=== PATIENT | female | born 1960 ===

== ENCOUNTER 2023-09-15 09:44 | Outpatient (AMB) | payer OTHER, SELFPAY ==
[2023-09-15 09:50] VITALS: BP 144/76; PULSE 77; RESP 14; TEMP 36.5; O2SAT 95; BMI 42.3
--- NOTE | 2023-09-15 09:50 | MHC.OFFWIV ---
Intake Vital Signs 09/15/23 09:50 Height 5 ft 1.6 in Weight 228 lb 6 oz BMI 42.3 BP 144/76 H Blood Pressure Location Rt brachial Position Sitting Respiration 14 Pulse 77 Pulse Source Pulse Oximeter Temp 97.7 F Temp Source Temporal Artery Scan Pulse Oximetry (%) 95 Oxygen Delivery Method Room Air Intake Visit Reasons: Diabetes Patient Tobacco Use Status: Never used Tobacco Securities Supervisor Required: Yes Securities Supervisor Name: daughter Accompanied by: Daughter Allergies Seasonal Allergies Allergy (Intermediate, Verified 09/15/23 10:01) Itchy Eyes Penicillins Adverse Reaction (Severe, Verified 09/15/23 10:02) Rash Medication List - Last Reconciled 09/15/23 by Cara Deshpande, MARINE EQUIPMENT ENGINEER- bisoprolol fumarate 5 mg PO BID levocetirizine (Allergy Relief (levocetirizine)) 5 mg PO DAILY sitagliptin phos-metformin 50-1,000 mg (Janumet) 1 tab PO BID telmisartan-amlodipine 80-5 mg 1 tab PO DAILY Do you need a note to return to daycare/school/sports/work: No HPI HPI Comments History of Present Illness Details 63-year-old female with diabetes type 2 with long-term insulin dependence, coronary artery disease here today with her daughter for medication refills Daughter states that she has just relocated to live here from [place]. She has been without her medications for at least a month. She brings me pictures of medications from [place] that she was taking previously. Hemoglobin A1c performed today 9.7% Lots of time was spent finding out what the [place] equivalent of the medications were. All medications were able to be input. No dose changes were made at today's visit. She we will need to establish care with a primary care provider for ongoing maintenance of her chronic care conditions. Wishes to establish care with a PCP sooner and with Dr. Dougherty. A message has been sent to her team to see if this is something that can be coordinated. If not she does have an established care appointment here in November and we will be happy to work with her. Until this time recommend that she continue her medications as directed and returned to the office sooner should she have any needs. PFSH Social History Patient Tobacco Use Status: Never used Tobacco Review of Systems Const All systems reviewed & are unremarkable except as noted in HPI and below Physical Exam Vital Signs: Last Vital Signs Temp 97.7 F 09/15/23 09:50 Pulse 77 09/15/23 09:50 Resp 14 09/15/23 09:50 BP 144/76 H 09/15/23 09:50 Pulse Ox 95 09/15/23 09:50 Oxygen Delivery Method Room Air 09/15/23 09:50 BMI result Body Mass Index 42.3 Const Other: Awake alert oriented Ambulates with a cane Results AMB Hemoglobin A1c AMB Hemoglobin A1c 9.7 % Last Edit by DIANA Donovan on 09/15/23 10:26 Results Reviewed Results Reviewed: Laboratory Last Values Hgb A1c (Clinic) 9.7 % (4.0-6.0) H 09/15/23 10:25 Assessment & Plan Assessment & Plan (1) Diabetes mellitus type 2, insulin dependent: Code(s): E11.9 - Type 2 diabetes mellitus without complications; Z79.4 - intermodal customer service (current) use of insulin (2) CAD (coronary artery disease): Code(s): I25.10 - Atherosclerotic heart disease of platinum coronary artery without angina pectoris Plan: . Plan . This note is constructed using voice recognition software. While every effort has been made to ensure accuracy in linux system admin, still errors may have been included Sometimes, these errors may affect the content or meaning of the given sentence . Total time spent caring for the patient today was 45 minutes. This includes time spent before the visit reviewing the chart, time spent during the visit, and time spent after the visit on documentation Orders: Orders AMB Hemoglobin A1c Today Z13.9 - Encounter for screening, unspecified Medications: New insulin lispro (Humalog KwikPen (U-100) Insulin) SEE BELOW subcutaneously 3 times a day; 20UNITS IN THE AM, 20 UNITS IN THE PM AND 15 UNITS AT HS 15 mL 0RF E11.9 - Type 2 diabetes mellitus without complications, Z79.4 - intermodal customer service (current) use of insulin insulin NPH isoph U-100 human (Humulin N NPH U-100 Insulin KwikPen) TAKE 20 UNITS IN THE AM, 10 UNITS IN THE PM, AND 15 UNITS AT BEDTIME 15 mL 0RF E11.9 - Type 2 diabetes mellitus without complications, Z79.4 - [facility] (current) use of insulin pen needle, diabetic (Easy Comfort Pen [place]) As directed 6 X/DAY 1,200 ea 0RF E11.9 - Type 2 diabetes mellitus without complications, Z79.4 - intermodal customer service (current) use of insulin bisoprolol fumarate 5 mg PO BID 60 tabs 0RF rosuvastatin 20 mg PO DAILY 30 tabs 0RF antiarthritic combination no.2 (glucosamine-chondroitin) 900 mg PO DAILY 30 tabs 0RF montelukast (Singulair) 10 mg PO BEDTIME 30 tabs 0RF sitagliptin phos-metformin 50-1,000 mg (Janumet) 2 tabs PO ONCE 60 tabs 0RF telmisartan-amlodipine 80-5 mg 1 tab PO DAILY 30 tabs 0RF Patient Instructions: Continue to take all medications as directed. If Dr. Gonzalez is available to see you sooner the office will contact you. Otherwise follow up here for primary care as scheduled. Sooner as needed. Coding Level of Care Code Est Pt Level 5 (38245) Diagnoses Diabetes mellitus type 2, insulin dependent E11.9; Z79.4 CAD (coronary artery disease) I25.10
== END 2023-09-15 10:46 | disposition home or self-care (01) ==
PROVIDERS: Visit Provider Nurse Practitioner Family
DX: E11.9 Type 2 diabetes mellitus without complications (principal); Z79.4 Long term (current) use of insulin; I25.10 Atherosclerotic heart disease of native coronary artery without angina pectoris
CPT/HCPCS: 83036; 99215

== ENCOUNTER 2023-11-30 14:03 | Outpatient (AMB) | payer OTHER, SELFPAY ==
[2023-11-30 14:15] VITALS: BP 134/72; PULSE 65; O2SAT 96; BMI 38.0
--- NOTE | 2023-11-30 14:15 | MHC.PC.OV ---
Vital Signs 11/30/23 14:15 Height 5 ft 1.6 in Weight 205 lb 4 oz BMI 38.0 BP 134/72 Blood Pressure Location Rt brachial Position Sitting Pulse 65 Pulse Source Pulse Oximeter Pulse Oximetry (%) 96 Oxygen Delivery Method Room Air Intake Visit Reasons: [employer]ICE EST Care Allergies Seasonal Allergies Allergy (Intermediate, Verified 11/30/23 14:15) Itchy Eyes Penicillins Adverse Reaction (Severe, Verified 11/30/23 14:15) Rash Medication List - Last Reconciled 11/30/23 by Maximilian Gonzalez MD antiarthritic combination no.2 (glucosamine-chondroitin) 900 mg PO DAILY baclofen 10 mg PO DAILY bisoprolol fumarate 5 mg PO BID insulin lispro (Humalog KwikPen (U-100) Insulin) SEE BELOW subcutaneously 3 times a day; 20UNITS IN THE AM, 20 UNITS IN THE PM AND 15 UNITS AT HS insulin NPH isoph U-100 human (Humulin N NPH U-100 Insulin KwikPen) TAKE 20 UNITS IN THE AM, 10 UNITS IN THE PM, AND 15 UNITS AT BEDTIME Janumet 50-1,000 mg (sitagliptin phos-metformin) 2 tabs PO DAILY NS montelukast (Singulair) 10 mg PO BEDTIME omeprazole 20 mg PO DAILY pen needle, diabetic (Easy Comfort Pen [place]) As directed 6 X/DAY rosuvastatin 20 mg PO DAILY telmisartan-amlodipine 80-5 mg 1 tab PO DAILY Tobacco use date assessed: 11/30/23 Dental Screening Dental Screen Date: 11/30/23 Did you have a dental visit in the last 12 months?: Yes Did you have a dental problem in the last 6 months where you did not have access to dental care?: No Was dental information given to patient?: Patient has dentist HPI [employer]ICE EST Care HPI Details Patient is 63-year-old female from [place] who moved to [facility] July of this year And is living with her daughter Patient has gone through [place] war, and is now having PTSD Which is causing nightmares at night and difficulty sleeping She is chronically severely depressed Patient is requesting therapy, she will meet with Rashida so we can set that up Meanwhile I am starting her on Lexapro 10 mg daily Patient has a history of coronary artery disease and need to see Cardiology She is complaining of generalized abdominal pain and nausea Pain is located all over her abdomen and has no relationship with eating She is due for colonoscopy as well Gastroenterology referral placed, meanwhile patient will be started on omeprazole daily She has uncontrolled diabetes, hemoglobin A1c in August was 9.7 Currently patient is on insulin, endocrinology referral is placed She has already seen ophthalmology and was sent to another specialist for eye care Daughter has appointment for that She is also suffering from chronic pruritic rash all over her body More so at night, hydroxyzine 25 mg sent for that Lab order placed to be done fasting Daughter is also looking for housing and has filed application She is requesting help for the patient which we will address once I have more information Chronic constipation, last bowel movement was more than a week ago I have sent Senokot S tablet patient is to start taking 2 tablets every night She need to return in 3 weeks for follow-up appointment [facility] Social History Housing: House Patient Tobacco Use Status: Never used Tobacco e-Cigarette/Vaping Use: Never Used service: No Current occupational status: unemployed Current occupational exposures/hazards: No Cognitive needs: No Hearing needs: No Vision needs: Yes Questionnaire PHQ-9 Over the last 2 weeks, how often have you been bothered by any of the following problems? 1. Little interest or pleasure in doing things: several days 2. Feeling down, depressed, or hopeless: several days 3. Trouble falling or staying asleep, or sleeping too much: several days 4. Feeling tired or having little energy: several days 5. Poor appetite or overeating: several days 6. Feeling bad about yourself - or that you are a failure or have let yourself or your family down: several days 7. Trouble concentrating on things, such as reading the newspaper or watching television: several days 8. Moving or speaking so slowly that other people could have noticed. Or the opposite - being so fidgety or restless that you have been moving around a lot more than usual: several days 9. Thoughts that you would be better off or of hurting yourself in some way: several days Total score: 9 Depression Screening Interpretation: Negative Depression Screening Done: Yes 80235 - PHQ-9 Billing: Yes Source: Developed by Drs. Pratik Tolbert, Sue Valiente, Ozzie Mckenzie and colleagues, with an educational kahlil from [employer]. Thrive Questionnaire Date Thrive assessed: 11/30/23 I am a: Patient What is your living situation today?: I do not have a steady places to live I am temporarily staying with others Within the past 12 months, did the food you bought not last and you didn't have the money to get more?: Often true Within the past 12 months, did you worry whether your food would run out before you got money to buy more?: Often true Do you have trouble paying for medicines?: Yes Do you have trouble getting transportation to medical appointments?: Yes Do you have trouble paying your heating and electricity bill?: Yes Do you have trouble taking care of your child, family member or friend?: Yes Do you have trouble with day-to-day activities such as bathing, preparing meals, shopping, managing finances, etc.?: Yes Are you currently unemployed and looking for a job?: I choose not to answer this question Are you interested in more education?: No Please select the resources that you would like help with: Housing/Fpc, Food, Paying for medicine, Transportation, Care for elder or disabled and Daily support Currently or been in a relationship where the following occur: I choose not to answer THRIVE Score: 5 AUDIT C Alcohol Use Questionnaire (AUDIT-C) 1. How often do you have a drink containing alcohol?: Never 3. How often do you have six or more drinks on one occasion?: Never Total Score: 0 Score Reviewed/Action Taken: Yes SUMAYA-7 AMB Questionnaire SUMAYA-7 Date SUMAYA - 7 assessed: 11/30/23 Feeling nervous, anxious, or on edge: 3 = Nearly every day Not being able to stop or control worryin = Nearly every day Worrying too much about different things: 3 = Nearly every day Trouble relaxin = Nearly every day Being so restless that it is hard to sit still: 3 = Nearly every day Becoming easily annoyed or irritable: 3 = Nearly every day Feeling afraid as if something awful might happen: 3 = Nearly every day Total SUMAYA-7 score (0-4 normal; 5-9 mild; 10-14 moderate; 15-21 severe): 21 Source: Developed by Drs. Pratik Tolbert, Sue Valiente, Ozzie Mckenzie and colleagues, with an educational kahlil from [employer]. SUMAYA-7 Assessment Billing SUMAYA-7 Assessment Tool: SUMAYA-7 Assessment 53916 Review of Systems Const Denies chills, Denies fever(s) and Denies headache(s) ENT Denies headache(s), Denies nasal discharge, Denies nasal obstruction, Denies odynophagia and Denies sinus pain Card Denies chest pain at rest and Denies chest pain with activity Resp Denies cough and Denies hemoptysis GI Denies diarrhea, Denies odynophagia, Denies vomiting and Denies hematemesis Reports as per HPI Musc Denies abnormal gait Skin/Breast Reports as per HPI Neuro Denies Neuro-related abnormal movements, Denies abnormal gait and Denies headache(s) Psych Denies mood swings and Denies paranoia Endo Reports as per HPI Lan/Lymph Reports as per HPI Aller/Immun Reports as per HPI Physical exam (Primary Care) Vital Signs: Last Vital Signs Pulse 65 11/30/23 14:15 BP 134/72 11/30/23 14:15 Pulse Ox 96 11/30/23 14:15 Oxygen Delivery Method Room Air 11/30/23 14:15 BMI result Body Mass Index 38.0 Tobacco/Smoking Status: Tobacco use Status Tobacco use date assessed 11/30/23 11/30/23 14:27 Patient Tobacco Use Status Never used Tobacco 11/30/23 14:20 e-Cigarette/Vaping Use Never Used 11/30/23 14:27 PHQ-9: PHQ-9 Score PHQ-9: Total score 9 11/30/23 15:13 Depression Screening Interpretation: Negative Thrive Assessment: Date of Thrive Assessment Date Thrive assessed 11/30/23 11/30/23 14:27 Currently or been in a relationship where the following occur: I choose not to answer Const General: cooperative, comfortable and no acute distress Orientation/consciousness: patient oriented x3 HENMT Head: Yes normocephalic and Yes atraumatic Eyes General: appearance normal, both eyes and all related structures Pupils: Equal, round and reactive pupils present EOM: EOMs intact bilaterally Neck Neck: Yes supple and No lymphadenopathy Thyroid: Thyroid normal Lymphatic: no lymphadenopathy noted Resp Effort & Inspection: normal respiratory effort and able to speak in complete sentences Auscultation: clear to auscultation bilaterally Cardio Heart sounds: S1 normal heart sound present and S2 normal heart sound present GI Other: Generalized abdominal pain, bowel sounds positive soft General: Yes no CVA tenderness Back/Spine/Pelvis Back: no CVA tenderness Skin General skin exam: elasticity normal and turgor normal Neuro General: patient oriented x3 and gait normal Cranial nerves: Yes Equal, round and reactive pupils present Extrem General: Yes normal exam except as noted and No edema Psych Affect: Sad affect present and Blunted affect present Assessment and Plan Assessment & Plan (1) Establishing care with new doctor, encounter for: Code(s): Z76.89 - Persons encountering health services in other specified circumstances (2) Uncontrolled diabetes mellitus: Qualifiers: Diabetes mellitus type: type 1 Glycemic state: with hyperglycemia Qualified Code(s): E10.65 - Type 1 diabetes mellitus with hyperglycemia (3) Hyperglycemia due to diabetes mellitus: Code(s): E11.65 - Type 2 diabetes mellitus with hyperglycemia (4) CAD (coronary artery disease): Code(s): I25.10 - Atherosclerotic heart disease of [place] coronary artery without angina pectoris Qualifiers: Associated angina: without angina Coronary Disease-Associated Artery/Lesion type: [place] artery [place] vs. transplanted heart: [place] heart Qualified Code(s): I25.10 - Atherosclerotic heart disease of [place] coronary artery without angina pectoris (5) Generalized abdominal pain: Code(s): R10.84 - Generalized abdominal pain (6) Depression, major, severe recurrence: Code(s): F33.2 - Major depressive disorder, recurrent severe without psychotic features Qualifiers: Psychotic features: without psychotic features Qualified Code(s): F33.2 - Major depressive disorder, recurrent severe without psychotic features (7) PTSD (post-traumatic stress disorder): Code(s): F43.10 - Post-traumatic stress disorder, unspecified (8) Obesity due to excess calories: Code(s): E66.09 - Other obesity due to excess calories Qualifiers: Body mass index: BMI 38.0-38.9 Obesity classification: adult class 2 (BMI 35 - 39.9) Serious obesity comorbidity presence: with serious comorbidity Qualified Code(s): E66.01 - Morbid (severe) obesity due to excess calories; Z68.38 - Body mass index [BMI] 38.0-38.9, adult (9) Nausea: Code(s): R11.0 - Nausea (10) Blurring of vision: Code(s): H53.8 - Other visual disturbances (11) Chronic pruritus: Code(s): L29.9 - Pruritus, unspecified (12) Nightmares: Code(s): F51.5 - Nightmare disorder (13) Difficulty sleeping: Code(s): G47.9 - Sleep disorder, unspecified (14) Colon cancer screening: Code(s): Z12.11 - Encounter for screening for malignant neoplasm of colon Plan Patient is 63-year-old female from [place] who moved to [facility] July of this year And is living with her daughter Patient has gone through [place] war, and is now having PTSD Which is causing nightmares at night and difficulty sleeping She is chronically severely depressed Patient is requesting therapy, she will meet with Rashida so we can set that up Meanwhile I am starting her on Lexapro 10 mg daily Patient has a history of coronary artery disease and need to see Cardiology She is complaining of generalized abdominal pain and nausea Pain is located all over her abdomen and has no relationship with eating She is due for colonoscopy as well Gastroenterology referral placed, meanwhile patient will be started on omeprazole daily She has uncontrolled diabetes, hemoglobin A1c in August was 9.7 Currently patient is on insulin, endocrinology referral is placed She has already seen ophthalmology and was sent to another specialist for eye care Daughter has appointment for that She is also suffering from chronic pruritic rash all over her body More so at night, hydroxyzine 25 mg sent for that Lab order placed to be done fasting Daughter is also looking for housing and has filed application She is requesting help for the patient which we will address once I have more information Chronic constipation, last bowel movement was more than a week ago I have sent Senokot S tablet patient is to start taking 2 tablets every night She need to return in 3 weeks for follow-up appointment 60 minutes spent in care of this patient Orders: Orders Comprehensive [place]. Panel Fast Today E11.65 - Type 2 diabetes mellitus with hyperglycemia, E66.09 - Other obesity due to excess calories, F33.2 - Major depressive disorder, recurrent severe without psychotic features, F43.10 - Post-traumatic stress disorder, unspecified, F51.5 - Nightmare disorder, G47.9 - Sleep disorder, unspecified, H53.8 - Other visual disturbances, I25.10 - Atherosclerotic heart disease of [place] coronary artery without angina pectoris, L29.9 - Pruritus, unspecified, R10.84 - Generalized abdominal pain, R11.0 - Nausea, Z76.89 - Persons encountering health services in other specified circumstances Lipid Panel Today E11.65 - Type 2 diabetes mellitus with hyperglycemia, E66.09 - Other obesity due to excess calories, F33.2 - Major depressive disorder, recurrent severe without psychotic features, F43.10 - Post-traumatic stress disorder, unspecified, F51.5 - Nightmare disorder, G47.9 - Sleep disorder, unspecified, H53.8 - Other visual disturbances, I25.10 - Atherosclerotic heart disease of [place] coronary artery without angina pectoris, L29.9 - Pruritus, unspecified, R10.84 - Generalized abdominal pain, R11.0 - Nausea, Z76.89 - Persons encountering health services in other specified circumstances TSH reflex Free T4 Today E11.65 - Type 2 diabetes mellitus with hyperglycemia, E66.09 - Other obesity due to excess calories, F33.2 - Major depressive disorder, recurrent severe without psychotic features, F43.10 - Post-traumatic stress disorder, unspecified, F51.5 - Nightmare disorder, G47.9 - Sleep disorder, unspecified, H53.8 - Other visual disturbances, I25.10 - Atherosclerotic heart disease of [place] coronary artery without angina pectoris, L29.9 - Pruritus, unspecified, R10.84 - Generalized abdominal pain, R11.0 - Nausea, Z76.89 - Persons encountering health services in other specified circumstances Vitamin B12 Today E11.65 - Type 2 diabetes mellitus with hyperglycemia, E66.09 - Other obesity due to excess calories, F33.2 - Major depressive disorder, recurrent severe without psychotic features, F43.10 - Post-traumatic stress disorder, unspecified, F51.5 - Nightmare disorder, G47.9 - Sleep disorder, unspecified, H53.8 - Other visual disturbances, I25.10 - Atherosclerotic heart disease of [place] coronary artery without angina pectoris, L29.9 - Pruritus, unspecified, R10.84 - Generalized abdominal pain, R11.0 - Nausea, Z76.89 - Persons encountering health services in other specified circumstances Vitamin D 25-OH (D2 and D3) Today E11.65 - Type 2 diabetes mellitus with hyperglycemia, E66.09 - Other obesity due to excess calories, F33.2 - Major depressive disorder, recurrent severe without psychotic features, F43.10 - Post-traumatic stress disorder, unspecified, F51.5 - Nightmare disorder, G47.9 - Sleep disorder, unspecified, H53.8 - Other visual disturbances, I25.10 - Atherosclerotic heart disease of [place] coronary artery without angina pectoris, L29.9 - Pruritus, unspecified, R10.84 - Generalized abdominal pain, R11.0 - Nausea, Z76.89 - Persons encountering health services in other specified circumstances MM tomosynthesis screening BI Today Z12.31 - Encounter for screening mammogram for malignant neoplasm of breast Complete Blood Count Auto Diff Today E11.65 - Type 2 diabetes mellitus with hyperglycemia, E66.09 - Other obesity due to excess calories, F33.2 - Major depressive disorder, recurrent severe without psychotic features, F43.10 - Post-traumatic stress disorder, unspecified, F51.5 - Nightmare disorder, G47.9 - Sleep disorder, unspecified, H53.8 - Other visual disturbances, I25.10 - Atherosclerotic heart disease of [place] coronary artery without angina pectoris, L29.9 - Pruritus, unspecified, R10.84 - Generalized abdominal pain, R11.0 - Nausea, Z76.89 - Persons encountering health services in other specified circumstances Microalbumin, Random (w Creat) Today E11.65 - Type 2 diabetes mellitus with hyperglycemia, E66.09 - Other obesity due to excess calories, F33.2 - Major depressive disorder, recurrent severe without psychotic features, F43.10 - Post-traumatic stress disorder, unspecified, F51.5 - Nightmare disorder, G47.9 - Sleep disorder, unspecified, H53.8 - Other visual disturbances, I25.10 - Atherosclerotic heart disease of [place] coronary artery without angina pectoris, L29.9 - Pruritus, unspecified, R10.84 - Generalized abdominal pain, R11.0 - Nausea, Z76.89 - Persons encountering health services in other specified circumstances Referrals Cardiology Referral I25.10 - Atherosclerotic heart disease of [place] coronary artery without angina pectoris [employer]NAG[employer]ER Referral Z01.419 - Encounter for gynecological examination (general) (routine) without abnormal findings Endocrinology Referral E11.65 - Type 2 diabetes mellitus with hyperglycemia Gastroenterology Referral R10.84 - Generalized abdominal pain, Z12.11 - Encounter for screening for malignant neoplasm of colon Medications: New omeprazole 20 mg PO .q pm 30 caps 0RF Stomach pain sennosides-docusate sodium 8.6-50 mg (Senokot-S) 2 tab-caps (2 x 8.6-50 mg) PO BEDTIME 180 tabs 0RF constipation 90 days hydroxyzine HCl 25 mg PO BEDTIME 30 tabs 0RF Itching escitalopram oxalate (Lexapro) 10 mg PO .q am 30 tabs 0RF Depression Coding Level of Care Code New Pt Level 5 (40872) Diagnoses Establishing care with new doctor, encounter for Z76.89 Uncontrolled type 1 diabetes mellitus with hyperglycemia E10.65 Diabetes mellitus type: type 1 Glycemic state: with hyperglycemia Hyperglycemia due to diabetes mellitus E11.65 Coronary artery disease involving [place] coronary artery of [place] heart without angina pectoris I25.10 Associated angina: without angina Coronary Disease-Associated Artery/Lesion type: [place] artery [place] vs. transplanted heart: [place] heart Generalized abdominal pain R10.84 Severe episode of recurrent major depressive disorder, without psychotic features F33.2 Psychotic features: without psychotic features PTSD (post-traumatic stress disorder) F43.10 Class 2 severe obesity due to excess calories with serious comorbidity and body mass index (BMI) of 38.0 to 38.9 in adult E66.01; Z68.38 Body mass index: BMI 38.0-38.9 Obesity classification: adult class 2 (BMI 35 - 39.9) Serious obesity comorbidity presence: with serious comorbidity Nausea R11.0 Blurring of vision H53.8 Chronic pruritus L29.9 Nightmares F51.5 Difficulty sleeping G47.9 Colon cancer screening Z12.11 Additional Codes SUMAYA-7 Assessment Billing - SUMAYA-7 Assessment Tool: SUMAYA-7 Assessment 26331 ([id number])
== END 2023-11-30 15:04 | disposition home or self-care (01) ==
PROVIDERS: Visit Provider Internal Medicine
DX: E11.65 Type 2 diabetes mellitus with hyperglycemia (principal); F33.2 Major depressive disorder, recurrent severe without psychotic features; E66.01 Morbid (severe) obesity due to excess calories; Z68.38 Body mass index [BMI] 38.0-38.9, adult; Z76.89 Persons encountering health services in other specified circumstances; I25.10 Atherosclerotic heart disease of native coronary artery without angina pectoris; R10.84 Generalized abdominal pain; F43.10 Post-traumatic stress disorder, unspecified; R11.0 Nausea; H53.8 Other visual disturbances; L29.9 Pruritus, unspecified; F51.5 Nightmare disorder; G47.9 Sleep disorder, unspecified; Z12.11 Encounter for screening for malignant neoplasm of colon
CPT/HCPCS: 99215; 99417

== ENCOUNTER 2023-12-01 08:50 | Outpatient (REF) | payer OTHER, SELFPAY ==
[2023-12-01 09:57] LABS: MANUAL DIFF FLAG NO
[2023-12-01 10:14] LABS: Basophils Absolute Auto 0.1 X10*3/uL (0.0-0.2); Basophils Percent Auto 0.9 % (0-2); Eosinophils Percent Auto 12.8 % (0-4); Hematocrit 38.8 % (37.0-47.0); Hemoglobin 12.5 g/dl (12.0-16.0); Imm Gran Abs Auto 0.02 X10*3/uL (0.00-0.03); Imm Gran Pct Auto 0.3 % (0.0-0.4); Lymphocytes Absolute Auto 2.9 X10*3/uL (1.2-4.9); Mean Corpuscular HGB Conc 32.2 g/dl (31.0-35.0); Mean Corpuscular Hemoglobin 27.8 pg (27.0-33.0); Mean Corpuscular Volume 86.4 fL (80.0-98.0); Mean Platelet Volume 10.2 fL (9.4-12.3); Monocytes Absolute Auto 0.5 X10*3/uL (0.1-1.2); Monocytes Percent Auto 6.7 % (2-11); Neutrophils Absolute Auto 3.2 x10*3/uL (2.0-8.3); Neutrophils Percent Auto 41.3 % (45-73); Platelet Count 152 X10*3/uL (160-400); Red Blood Count 4.49 X10*6/uL (4.20-5.50); Red Cell Distribution Width 13.2 % (11.0-16.0); White Blood Count 7.7 X10*3/uL (4.8-10.8)
[2023-12-01 10:36] LABS: Creatinine Urine 38.15 mg/dL; Microalbum/Creatinine Ratio Ur 581.9 ug/mg cr (<30)
[2023-12-01 10:46] LABS: Alanine Aminotransferase 20 U/L (0-31); Alkaline Phosphatase 97 U/L (39-117); Anion Gap 13 (12-20); Aspartate Amino Transferase 15 U/L (5-31); Bilirubin Total 0.7 mg/dL (0.0-1.0); Blood Urea Nitrogen 22 mg/dL (9-16); Calcium 9.6 mg/dL (8.4-10.2); Carbon Dioxide 25 mmol/L (22-29); Chloride 109 mmol/L (96-108); Cholesterol 140 mg/dL (<200); Estimated Glomerular Filt Rate > 60; Glucose Fasting 215 mg/dL (60-99); HDL Cholesterol 33 mg/dL (>40); LDL Cholesterol Calculated 74 mg/dL (<100); Potassium 4.7 mmol/L (3.3-5.1); Sodium 142 mmol/L (135-145); TSH reflex Free T4 0.74 uIU/mL (0.32-4.0); Total Protein 7.2 g/dL (6.5-8.0); Triglycerides 165 mg/dL (<150)
[2023-12-01 11:19] LABS: Vitamin B12 495 pg/mL (200-900)
[2023-12-05 15:53] LABS: Vitamin D 25-OH, D2 14 ng/mL; Vitamin D 25-OH, D3 15 ng/mL; Vitamin D 25-OH, Total 29 ng/mL (30-100)
== END 2023-12-01 08:51 | disposition home or self-care (01) ==
LOC: HO.HMGCLDS 08:50
PROVIDERS: PCP Internal Medicine; Visit Provider Internal Medicine
DX: E11.65 Type 2 diabetes mellitus with hyperglycemia (principal); Z76.89 Persons encountering health services in other specified circumstances; I25.10 Atherosclerotic heart disease of native coronary artery without angina pectoris; R10.84 Generalized abdominal pain; F33.2 Major depressive disorder, recurrent severe without psychotic features; F43.10 Post-traumatic stress disorder, unspecified; E66.09 Other obesity due to excess calories; R11.0 Nausea; H53.8 Other visual disturbances; L29.9 Pruritus, unspecified; F51.5 Nightmare disorder; G47.9 Sleep disorder, unspecified
CPT/HCPCS: 36415; 80053; 80061; 82043; 82306; 82570; 82607; 84443; 85025

== ENCOUNTER 2023-12-02 14:47 | Outpatient (AMB) | payer OTHER, SELFPAY ==
--- NOTE | 2023-12-02 14:51 | MHC.OFFVIS ---
Vital Signs 12/02/23 14:55 Height 5 ft 1.6 in Weight 213 lb 13.574 oz BMI 39.6 BP 120/78 Blood Pressure Location Rt brachial Position Sitting Pulse 66 Pulse Source Pulse Oximeter Intake Visit Reasons: Type 2 DM-confirmed Intake Note: NEW Patient presents today to establish treatment for Type 2 Diabetes Mellitus: Last Diabetic eye exam was on: DUE Last Podiatry exam was on: Does not see a Ventilator Specialist Most recent HbA1c: 9.7%, 09/15/2023 Random Glucose- 197mg/dL, Today Hotel Or Motel Cleaning Supervisor Required: Yes Hotel Or Motel Cleaning Supervisor Services: Hotel Or Motel Cleaning Supervisor Offered & Declined (Patient signed the refusal to accept interpretative services (Daughter)) Accompanied by: Daughter Allergies Seasonal Allergies Allergy (Intermediate, Verified 12/02/23 14:57) Itchy Eyes Penicillins Adverse Reaction (Severe, Verified 12/02/23 14:57) Rash HPI Comments Details: 63-year-old female with diabetes type 2 with long-term insulin dependence presenting for diabetic consultation Medical history: CAD, depression, htn, OA Hemoglobin A1c performed in August 9.7%.Recently moved from [place]. Elects daughter to interpret Current medications: NPH 15/01/15 and lispro , janumet. Reports majority of blood glucose in 200s. No hypoglycemia. No readings >350 Needs eye doctor, podiatry On ARB, statin ROS CONSTITUTIONAL: Denies weight loss, fever and chills. HEENT: Denies changes in vision and hearing. RESPIRATORY: Denies SOB and cough. CV: Denies palpitations and CP GI: Denies abdominal pain, nausea, vomiting and diarrhea. : Denies dysuria and urinary frequency. MSK: Denies new myalgia and joint pain. SKIN: Denies rash and pruritus. NEUROLOGICAL: Denies headache PSYCHIATRIC: Denies recent changes in mood. PHYSICAL EXAM: GENERAL: Alert and oriented x 3. NAD EYES: EOMI. Anicteric. HENT: Moist mucous membranes. No scleral icterus. No cervical lymphadenopathy. LUNGS: Clear to auscultation bilaterally. CARDIOVASCULAR: Regular rate and rhythm. No murmur. No JVD. ABDOMEN: Soft, non-tender +bs EXTREMITIES: No edema. Non-tender. SKIN: No rashes or lesions. Warm. NEUROLOGIC: No focal neurological deficits. CN II-XII grossly intact PSYCHIATRIC: Cooperative. Appropriate mood and affect [facility] Social History Housing: House Patient Tobacco Use Status: Never used Tobacco e-Cigarette/Vaping Use: Never Used service: No Current occupational status: unemployed Current occupational exposures/hazards: No Cognitive needs: No Hearing needs: No Vision needs: Yes Physical Exam Vital Signs: Last Vital Signs Pulse 66 12/02/23 14:55 BP 120/78 12/02/23 14:55 BMI result Body Mass Index 39.6 Results Reviewed Results Reviewed: Laboratory Last Values Glucose (Clinic) 197 mg/dL (60-115) H 12/02/23 15:01 Assessment & Plan Assessment & Plan (1) Diabetes: Code(s): E11.9 - Type 2 diabetes mellitus without complications Category: Medical Qualifiers: Diabetes mellitus complication status: with hyperglycemia Diabetes mellitus watermelon harvesting supervisor insulin use: with longterm use Diabetes mellitus type: type 2 Qualified Code(s): E11.65 - Type 2 diabetes mellitus with hyperglycemia; Z79.4 - detention (current) use of insulin Plan: Discussed with patient to bring meter/logs to every visit Will transition her to long acting and short acting insulin-will be conservative for transition, start with Lantus 45 untis nightly and continue current short acting insulin dose Stop janumet. Continue metformin-max dose and add mounjaro Freestyle Ramy sent. Short term follow up Referrals placed (2) Insulin long-term use: Code(s): Z79.4 - termite exterminator (current) use of insulin Category: Medical Plan: see above Orders: Referrals Podiatry Referral L08.9 - Local infection of the skin and subcutaneous tissue, unspecified, E11.9 - Type 2 diabetes mellitus without complications, Z79.4 - detention (current) use of insulin Ophthalmology Referral E11.9 - Type 2 diabetes mellitus without complications Medications: New FreeStyle Ramy 3 [place] (blood-glucose meter,continuous) As directed 1 ea 0RF NS E10.65 - Type 1 diabetes mellitus with hyperglycemia insulin glargine (Lantus Solostar U-100 Insulin) 45 units (0.45 mL) subcut QPM 30 mL 3RF Mounjaro (tirzepatide) for 4 weeks 2.5 mg (0.5 mL) subcut QWEEK 2 mL 1RF NS E11.65 - Type 2 diabetes mellitus with hyperglycemia, E11.9 - Type 2 diabetes mellitus without complications, Z79.4 - termite exterminator (current) use of insulin metformin ER 2,000 mg (4 x 500 mg) PO DAILY 360 tabs 3RF 90 days FreeStyle Ramy 3 Sensor (blood-glucose sensor) every 14 days 6 ea 3RF NS E11.9 - Type 2 diabetes mellitus without complications, Z79.4 - termite exterminator (current) use of insulin, E11.65 - Type 2 diabetes mellitus with hyperglycemia Changed From insulin lispro SEE BELOW subcutaneously 3 times a day; 20UNITS IN THE AM, 20 UNITS IN THE PM AND 15 UNITS AT HS 15 mL 0RF E11.9 - Type 2 diabetes mellitus without complications, Z79.4 - termite exterminator (current) use of insulin To Humalog KwikPen Insulin (insulin lispro) 20 units subcutaneous with breakfast 20 units subcutaneous with lunch;15 units with dinner 15 mL 3RF NS E11.9 - Type 2 diabetes mellitus without complications, Z79.4 - termite exterminator (current) use of insulin Discontinued Janumet 50-1,000 mg Discontinued Reason: Doctor's Order 2 tabs PO DAILY 180 tabs 0RF NS insulin NPH isoph U-100 human Discontinued Reason: Doctor's Order TAKE 20 UNITS IN THE AM, 10 UNITS IN THE PM, AND 15 UNITS AT BEDTIME 15 mL 0RF E11.9 - Type 2 diabetes mellitus without complications, Z79.4 - detention (current) use of insulin Coding Level of Care Code Est Pt Level 5 (12252) Diagnoses Type 2 diabetes mellitus with hyperglycemia, with long-term current use of insulin E11.65; Z79.4 Diabetes mellitus complication status: with hyperglycemia Diabetes mellitus watermelon harvesting supervisor insulin use: with longterm use Diabetes mellitus type: type 2 Insulin long-term use Z79.4 Time Spent (min) 50
[2023-12-02 14:55] VITALS: BP 120/78; PULSE 66; BMI 39.6
[2023-12-02 15:05] LABS: Glucose, Whole Blood 197 mg/dL (60-115)
== END 2023-12-02 15:34 | disposition home or self-care (01) ==
PROVIDERS: PCP Internal Medicine; Visit Provider Internal Medicine
DX: E11.65 Type 2 diabetes mellitus with hyperglycemia (principal); Z79.4 Long term (current) use of insulin

== ENCOUNTER → 2023-12-02 14:47 | Outpatient (BNVA) | payer OTHER, SELFPAY | PROVIDERS: PCP Internal Medicine; Visit Provider Internal Medicine | DX: E11.65 Type 2 diabetes mellitus with hyperglycemia (principal); Z79.4 Long term (current) use of insulin | CPT/HCPCS: 82947 ==

== ENCOUNTER 2023-12-21 13:42 | Outpatient (AMB) | payer OTHER, SELFPAY ==
--- NOTE | 2023-12-21 13:48 | A.OFFPC_ITS ---
Vital Signs 12/21/23 13:50 Height 5 ft 1.6 in Weight 214 lb BMI 39.6 BP 136/80 Blood Pressure Location Rt brachial Position Sitting Pulse 74 Pulse Source Pulse Oximeter Pulse Oximetry (%) 98 Oxygen Delivery Method Room Air Intake Visit Reasons: 3 weeks f/up Allergies Seasonal Allergies Allergy (Intermediate, Verified 12/21/23 13:50) Itchy Eyes Penicillins Adverse Reaction (Severe, Verified 12/21/23 13:50) Rash Medication List - Last Reconciled 12/21/23 by Maximilian Gonzalez MD antiarthritic combination no.2 (glucosamine-chondroitin) 900 mg PO DAILY baclofen 10 mg PO DAILY bisoprolol fumarate 5 mg PO BID escitalopram oxalate (Lexapro) 10 mg PO .q am FreeStyle Ramy 3 [place] (blood-glucose meter,continuous) As directed NS FreeStyle Ramy 3 Sensor (blood-glucose sensor) every 14 days NS Humalog KwikPen Insulin (insulin lispro) 20 units subcutaneous with breakfast 20 units subcutaneous with lunch;15 units with dinner NS hydroxyzine HCl 25 mg PO BEDTIME insulin glargine (Lantus Solostar U-100 Insulin) 45 units (0.45 mL) subcut QPM metformin ER 2,000 mg (4 x 500 mg) PO DAILY 90 days montelukast (Singulair) 10 mg PO BEDTIME Mounjaro (tirzepatide) 2.5 mg (0.5 mL) subcut QWEEK NS omeprazole 20 mg PO DAILY omeprazole 20 mg PO .q pm pen needle, diabetic (Easy Comfort Pen Kuna) As directed 6 X/DAY rosuvastatin 20 mg PO DAILY sennosides-docusate sodium 8.6-50 mg (Senokot-S) 2 tab-caps (2 x 8.6-50 mg) PO BEDTIME 90 days telmisartan-amlodipine 80-5 mg 1 tab PO DAILY Tobacco use date assessed: 11/30/23 Dental Screening Dental Screen Date: 11/30/23 HPI 3 weeks f/up HPI Details Patient is 63-year-old female who speaks only her [place] language came in with her daughter was speak [place] This is her 2nd visit Patient have complicated medical history She has coronary artery disease, continued to have chest pain off and on radiating to left arm Daughter has tried to take her to emergency room but patient has been refusing She does have a cardiology appointment 03 of April EKG done today shows no acute findings normal sinus rhythm I have sent nitroglycerin tablets with the patient explain to her that to placed under the tongue if she started having chest pain again And if pain does not resolve she needs to go to emergency room Depression: She was started on Lexapro 10 mg she is feeling better I am increasing the dose to 20 mg Chronic pruritus better with hydroxyzine 25 mg at night Allergies are also better with montelukast 10 mg daily Patient is now going to endocrinology for the management of uncontrolled insulin-dependent diabetes mellitus Omeprazole has helped her with the epigastric discomfort, however she is still waiting for gastroenterology appointment, I have sent message to them She will meet with our behavior health coordinator again so we can help set up therapy appointment for the patient. Constipation is better with Senokot S tablets. Blood pressure is stable continue telmisartan amlodipine daily Medications refills sent Follow-up 3 months [facility] Social History Housing: [place] Patient Tobacco Use Status: Never used Tobacco e-Cigarette/Vaping Use: Never Used service: No Current occupational status: unemployed Current occupational exposures/hazards: No Cognitive needs: No Hearing needs: No Vision needs: Yes Questionnaire PHQ-9 Over the last 2 weeks, how often have you been bothered by any of the following problems? 1. Little interest or pleasure in doing things: several days 2. Feeling down, depressed, or hopeless: several days 3. Trouble falling or staying asleep, or sleeping too much: several days 4. Feeling tired or having little energy: several days 5. Poor appetite or overeating: several days 6. Feeling bad about yourself - or that you are a failure or have let yourself or your family down: several days 7. Trouble concentrating on things, such as reading the newspaper or watching television: several days 8. Moving or speaking so slowly that other people could have noticed. Or the opposite - being so fidgety or restless that you have been moving around a lot more than usual: several days 9. Thoughts that you would be better off or of hurting yourself in some way: several days Total score: 9 Depression Screening Interpretation: Negative Depression Screening Done: Yes 88408 - PHQ-9 Billing: Yes Source: Developed by Drs. Pratik Tolbert, Ozzie Rodas and colleagues, with an educational kahlil from [employer]. Thrive Questionnaire Date Thrive assessed: 11/23/23 I am a: Patient What is your living situation today?: I do not have a steady places to live I am temporarily staying with others Within the past 12 months, did the food you bought not last and you didn't have the money to get more?: Often true Within the past 12 months, did you worry whether your food would run out before you got money to buy more?: Often true Do you have trouble paying for medicines?: Yes Do you have trouble getting transportation to medical appointments?: Yes Do you have trouble paying your heating and electricity bill?: Yes Do you have trouble taking care of your child, family member or friend?: Yes Do you have trouble with day-to-day activities such as bathing, preparing meals, shopping, managing finances, etc.?: Yes Are you currently unemployed and looking for a job?: I choose not to answer this question Are you interested in more education?: No Currently or been in a relationship where the following occur: I choose not to answer THRIVE Score: 5 AUDIT C Alcohol Use Questionnaire (AUDIT-C) 1. How often do you have a drink containing alcohol?: Never 3. How often do you have six or more drinks on one occasion?: Never Total Score: 0 SUMAYA-7 AMB Questionnaire SUMAYA-7 Date SUMAYA - 7 assessed: 11/30/23 Feeling nervous, anxious, or on edge: 3 = Nearly every day Not being able to stop or control worryin = Nearly every day Worrying too much about different things: 3 = Nearly every day Trouble relaxin = Nearly every day Being so restless that it is hard to sit still: 3 = Nearly every day Becoming easily annoyed or irritable: 3 = Nearly every day Feeling afraid as if something awful might happen: 3 = Nearly every day Total SUMAYA-7 score (0-4 normal; 5-9 mild; 10-14 moderate; 15-21 severe): 21 Source: Developed by Drs. Pratik Tolbert, Ozzie Rodas and colleagues, with an educational kahlil from [employer]. Review of Systems Const Denies chills and Denies fever(s) ENT Denies epistaxis and Denies nasal discharge Resp Denies chest congestion, Denies cough and Denies hemoptysis GI Denies diarrhea and Denies nausea Skin/Breast Denies rash Neuro Reports no additional complaints Psych Reports no additional complaints Endo Reports no additional complaints Physical exam (Primary Care) Vital Signs: Last Vital Signs Pulse 74 12/21/23 13:50 BP 136/80 12/21/23 13:50 Pulse Ox 98 12/21/23 13:50 Oxygen Delivery Method Room Air 12/21/23 13:50 BMI result Body Mass Index 39.6 Tobacco/Smoking Status: Tobacco use Status Tobacco use date assessed 11/30/23 12/21/23 13:49 Patient Tobacco Use Status Never used Tobacco 12/21/23 13:49 e-Cigarette/Vaping Use Never Used 12/21/23 13:49 PHQ-9: PHQ-9 Score PHQ-9: Total score 9 12/21/23 14:19 Depression Screening Interpretation: Negative Thrive Assessment: Date of Thrive Assessment Date Thrive assessed 11/23/23 12/21/23 13:49 Currently or been in a relationship where the following occur: I choose not to answer Const General: cooperative, comfortable and no acute distress Orientation/consciousness: patient oriented x3 HENMT Head: Yes normocephalic Eyes General: appearance normal, both eyes and all related structures Neck Neck: Yes supple Resp Effort & Inspection: normal respiratory effort, no cough and no stridor Cardio Rhythm: regular rhythm Heart sounds: S1 normal heart sound present and S2 normal heart sound present Skin General skin exam: turgor normal Neuro General: patient oriented x3, tone normal and moves all extremities Extrem Right lower extremity: no edema Left lower extremity: no edema Office Procedures EKG [id number], Complete Assessment and Plan Assessment & Plan (1) CAD (coronary artery disease): Code(s): I25.10 - Atherosclerotic heart disease of [place] coronary artery without angina pectoris Qualifiers: Associated angina: without angina Coronary Disease-Associated Artery/[place] j[place] type: [place] artery [place] vs. transplanted heart: [place] heart Qualified Code(s): I25.10 - Atherosclerotic heart disease of [place] coronary artery without angina pectoris (2) Generalized abdominal pain: Code(s): R10.84 - Generalized abdominal pain (3) Depression, major, severe recurrence: Code(s): F33.2 - Major depressive disorder, recurrent severe without psychotic features Qualifiers: Psychotic features: without psychotic features Qualified Code(s): F33.2 - Major depressive disorder, recurrent severe without psychotic features (4) PTSD (post-traumatic stress disorder): Code(s): F43.10 - Post-traumatic stress disorder, unspecified (5) Obesity due to excess calories: Code(s): E66.09 - Other obesity due to excess calories Qualifiers: Body mass index: BMI 38.0-38.9 Obesity classification: adult class 2 (BMI 35 - 39.9) Serious obesity comorbidity presence: with serious comorbidity Qualified Code(s): E66.01 - Morbid (severe) obesity due to excess calories; Z68.38 - Body mass index [BMI] 38.0-38.9, adult (6) Nausea: Code(s): R11.0 - Nausea (7) Chronic pruritus: Code(s): L29.9 - Pruritus, unspecified (8) Nightmares: Code(s): F51.5 - Nightmare disorder (9) Difficulty sleeping: Code(s): G47.9 - Sleep disorder, unspecified Plan Patient is 63-year-old female who speaks only her [place] language came in with her daughter was speak [place] This is her 2nd visit Patient have complicated medical history She has coronary artery disease, continued to have chest pain off and on radiating to left arm Daughter has tried to take her to emergency room but patient has been refusing She does have a cardiology appointment 03 of April EKG done today shows no acute findings normal sinus rhythm I have sent nitroglycerin tablets with the patient explain to her that to placed under the tongue if she started having chest pain again And if pain does not resolve she needs to go to emergency room Depression: She was started on Lexapro 10 mg she is feeling better I am increasing the dose to 20 mg Chronic pruritus better with hydroxyzine 25 mg at night Allergies are also better with montelukast 10 mg daily Patient is now going to endocrinology for the management of uncontrolled insulin-dependent diabetes mellitus Omeprazole has helped her with the epigastric discomfort, however she is still waiting for gastroenterology appointment, I have sent message to them She will meet with our behavior health coordinator again so we can help set up therapy appointment for the patient. Constipation is better with Senokot S tablets. Blood pressure is stable continue telmisartan amlodipine daily Medications refills sent Follow-up 3 months 45 minutes spent with this patient including EKG, [id number], reviewing chart, coordination of care Medications: New nitroglycerin If chest pain do not resolve in 5 minutes please go to emergency room 0.4 mg sublingual ONCE PRN 30 tabs 0RF chest pain Changed 2 From escitalopram oxalate (Lexapro) 10 mg PO .q am 30 tabs 0RF Depression To escitalopram oxalate 20 mg PO .q am 90 tabs 1RF Depression Refilled hydroxyzine HCl 25 mg PO BEDTIME 90 tabs 0RF Itching montelukast (Singulair) 10 mg PO BEDTIME 90 tabs 0RF Allergy omeprazole 20 mg PO .q pm 90 caps 1RF Stomach pain sennosides-docusate sodium 8.6-50 mg (Senokot-S) 2 tab-caps (2 x 8.6-50 mg) PO BEDTIME 180 tabs 0RF constipation 90 days rosuvastatin 20 mg PO DAILY 90 tabs 0RF telmisartan-amlodipine 80-5 mg 1 tab PO DAILY 90 tabs 1RF High blood pressure Coding Level of Care Code Est Pt Level 5 (05165) Diagnoses Coronary artery disease involving [place] coronary artery of [place] heart without angina pectoris I25.10 Associated angina: without angina Coronary Disease-Associated Artery/Lesion type: [place] artery [place] vs. transplanted heart: [place] heart Generalized abdominal pain R10.84 Severe episode of recurrent major depressive disorder, without psychotic features F33.2 Psychotic features: without psychotic features PTSD (post-traumatic stress disorder) F43.10 Class 2 severe obesity due to excess calories with serious comorbidity and body mass index (BMI) of 38.0 to 38.9 in adult E66.01; Z68.38 Body mass index: BMI 38.0-38.9 Obesity classification: adult class 2 (BMI 35 - 39.9) Serious obesity comorbidity presence: with serious comorbidity Nausea R11.0 Chronic pruritus L29.9 Nightmares F51.5 Difficulty sleeping G47.9 CPT Codes EKG - CPT: [id number], Complete ([id number])
[2023-12-21 13:50] VITALS: BP 136/80; PULSE 74; O2SAT 98; BMI 39.6
== END 2023-12-21 14:27 | disposition home or self-care (01) ==
PROVIDERS: PCP Internal Medicine; Visit Provider Internal Medicine
DX: I25.10 Atherosclerotic heart disease of native coronary artery without angina pectoris (principal); F33.2 Major depressive disorder, recurrent severe without psychotic features; E66.01 Morbid (severe) obesity due to excess calories; Z68.38 Body mass index [BMI] 38.0-38.9, adult; R10.84 Generalized abdominal pain; F43.10 Post-traumatic stress disorder, unspecified; R11.0 Nausea; L29.9 Pruritus, unspecified; F51.5 Nightmare disorder; G47.9 Sleep disorder, unspecified

== ENCOUNTER → 2023-12-21 13:42 | Outpatient (BNVA) | payer OTHER, SELFPAY | PROVIDERS: PCP Internal Medicine; Visit Provider Internal Medicine | DX: I25.10 Atherosclerotic heart disease of native coronary artery without angina pectoris (principal); R10.84 Generalized abdominal pain; F33.2 Major depressive disorder, recurrent severe without psychotic features; F43.10 Post-traumatic stress disorder, unspecified; E66.09 Other obesity due to excess calories; Z68.38 Body mass index [BMI] 38.0-38.9, adult; R11.0 Nausea; L29.9 Pruritus, unspecified; F51.5 Nightmare disorder; G47.9 Sleep disorder, unspecified; Z79.899 Other long term (current) drug therapy | CPT/HCPCS: 93005; 96127 ==

== ENCOUNTER 2023-12-22 10:53 | Outpatient (AMB) | payer OTHER, SELFPAY ==
--- NOTE | 2023-12-22 11:23 | MHC.AMDMED ---
Intake Intake Visit Reasons: DM/CONFIRMED Bullard Operator Required: Yes Bullard Operator Name: Pt's Daughter Accompanied by: Daughter Allergies Seasonal Allergies Allergy (Intermediate, Verified 12/21/23 13:50) Itchy Eyes Penicillins Adverse Reaction (Severe, Verified 12/21/23 13:50) Rash HPI Comprehensive Diabetes Asmnt Most Recent Diabetes Results: Microalb/Creat Ratio 581.9 ug/mg cr (<30) H 12/01/23 Cholesterol 140 mg/dL (<200) 12/01/23 HDL Cholesterol 33 mg/dL (>40) L 12/01/23 Triglycerides 165 mg/dL (<150) H 12/01/23 Creatinine 0.89 mg/dL (0.5-1.4) 12/01/23 Blood Urea Nitrogen 22 mg/dL (9-16) H 12/01/23 Sodium 142 mmol/L (135-145) 12/01/23 Potassium 4.7 mmol/L (3.3-5.1) 12/01/23 Chloride 109 mmol/L (96-108) H 12/01/23 Carbon Dioxide 25 mmol/L (22-29) 12/01/23 Calcium 9.6 mg/dL (8.4-10.2) 12/01/23 AST 15 U/L (5-31) 12/01/23 ALT 20 U/L (0-31) 12/01/23 Total Protein 7.2 g/dL (6.5-8.0) 12/01/23 Albumin 4.0 g/dL (3.5-5.0) 12/01/23 PFSH Social History Housing: House Patient Tobacco Use Status: Never used Tobacco e-Cigarette/Vaping Use: Never Used service: No Current occupational status: unemployed Current occupational exposures/hazards: No Cognitive needs: No Hearing needs: No Vision needs: Yes Assessment & Plan Assessment & Plan (1) Diabetes: Code(s): E11.9 - Type 2 diabetes mellitus without complications Qualifiers: Diabetes mellitus type: type 2 Diabetes mellitus nursing home insulin use: with terminal superintendent use Diabetes mellitus complication status: with hyperglycemia Qualified Code(s): E11.65 - Type 2 diabetes mellitus with hyperglycemia; Z79.4 - terminal system operator (current) use of insulin Plan: Patient at visit to set up an insert Ramy 3 Spoke with patient and her daughter to clarify new insulin plan Patient should be taking Humalog as prescribed before meals Lantus once a day Discontinue NPH Pharmacist reports that Mounjaro was not covered by patient's insurance, message sent to provider to see a different GLP 1 would be appropriate. Instructed patient sensors water proof you can shower, or swim do not submerge sensor in water for over 30 minutes Is sensor falls off cannot put back in you need to replace sensor, customer service number given to patient for sensor replacement Sensor placed on the back of Right arm Patient left visit with sensor in warmup Reviewed how to interpret trend arrows Reminded patient that to check finger sticks if symptoms do not match sensor reading. Discussed lag time between finger stick and sensor data.? Instructed patient she should always keep blood glucometer for backup testing if needed Reviewed delay of CGM from fingersticks Reminded pt that if symptoms do not match sensor still needs to check fingersticks. Patient has follow-up visit with provider on 01/05/2024, patient will follow-up with paraeducator as needed Portions of this note were created using voice recognition software, please excuse any words or phrases that may have been misinterpreted. Patient Instructions: Patient instruction: CGM provides information on blood glucose control throughout the day, including hyperglycemia and hypoglycemia. ? Continue to monitor blood glucose as instructed. Follow nutrition guidelines provided. Report any discomfort promptly to health care provider. ?Stay well-hydrated. You can bathe ,shower, swim and exercise while wearing the glucose sensor. Do not submerge glucose sensor in water for more than 30 minutes. Coding Level of Care Code Est Pt Level 1 (74198) Diagnoses Type 2 diabetes mellitus with hyperglycemia, with long-term current use of insulin E11.65; Z79.4 Diabetes mellitus type: type 2 Diabetes mellitus nursing home insulin use: with terminal superintendent use Diabetes mellitus complication status: with hyperglycemia
== END 2023-12-22 11:24 | disposition home or self-care (01) ==
PROVIDERS: PCP Internal Medicine; Visit Provider Registered Nurse Diabetes Educator
DX: E11.65 Type 2 diabetes mellitus with hyperglycemia (principal); Z79.4 Long term (current) use of insulin

== ENCOUNTER → 2023-12-22 10:53 | Outpatient (BNVA) | payer OTHER, SELFPAY | PROVIDERS: PCP Internal Medicine; Visit Provider Registered Nurse Diabetes Educator | DX: E11.65 Type 2 diabetes mellitus with hyperglycemia (principal); Z79.4 Long term (current) use of insulin | CPT/HCPCS: 99211 ==

== ENCOUNTER 2024-01-05 09:18 | Outpatient (AMB) | payer OTHER, SELFPAY ==
--- NOTE | 2024-01-05 09:27 | A.OFFVIS_ITS ---
Vital Signs 01/05/24 09:29 Height 5 ft 1.6 in Weight 207 lb 3.752 oz BMI 38.4 BP 122/72 Blood Pressure Location Rt brachial Position Sitting Pulse 71 Pulse Source Pulse Oximeter Intake Visit Reasons: DM Intake Note: Patient presents today for a follow-up on Type 2 Diabetes Mellitus: Last Diabetic eye exam was on: DUE Last Podiatry exam was on: Does not see a Chemical Laboratory Chief Most recent HbA1c: 9.6%, 01/05/2024 Random Glucose- 132 mg/dL, Today Loft Rigger Required: Yes Loft Rigger Services: Loft Rigger Offered & Declined (Patient signed the refusal to accept interpretative services (Daughter)) Accompanied by: Daughter Allergies Seasonal Allergies Allergy (Intermediate, Verified 12/21/23 13:50) Itchy Eyes Penicillins Adverse Reaction (Severe, Verified 12/21/23 13:50) Rash HPI Comments Details: 63-year-old female with diabetes type 2 with long-term insulin dependence presenting for diabetic follow up Medical history: CAD, depression, htn, OA Current medications: Transitioned at last visit from (NPH 15/01/15 and lispro , janumet) to metformin 2000mg daily, ozempic 0.25mg weekly (has only had one dose), Lantus 45 units, and humalog . Hemoglobin A1c today 9.6% -in August 9.7%. [employer]GM[employer] josy download with GMI 8.5%, 33% target, 66% high, 1% low. Says she feels well on the new medication regimen referred to eye doctor, podiatry at last visit On ARB, statin ROS CONSTITUTIONAL: Denies weight loss, fever and chills. HEENT: Denies changes in vision and hearing. RESPIRATORY: Denies SOB and cough. CV: Denies palpitations and CP GI: Denies abdominal pain, nausea, vomiting and diarrhea. : Denies dysuria and urinary frequency. MSK: Denies new myalgia and joint pain. SKIN: Denies rash and pruritus. NEUROLOGICAL: Denies headache PSYCHIATRIC: Denies recent changes in mood. PHYSICAL EXAM: GENERAL: Alert and oriented x 3. NAD EYES: EOMI. Anicteric. HENT: Moist mucous membranes. No scleral icterus. No cervical lymphadenopathy. LUNGS: Clear to auscultation bilaterally. CARDIOVASCULAR: Regular rate and rhythm. No murmur. No JVD. ABDOMEN: Soft, non-tender +bs EXTREMITIES: No edema. Non-tender. SKIN: No rashes or lesions. Warm. NEUROLOGIC: No focal neurological deficits. CN II-XII grossly intact PSYCHIATRIC: Cooperative. Appropriate mood and affect [facility] Social History Housing: House Patient Tobacco Use Status: Never used Tobacco e-Cigarette/Vaping Use: Never Used service: No Current occupational status: unemployed Current occupational exposures/hazards: No Cognitive needs: No Hearing needs: No Vision needs: Yes Physical Exam Vital Signs: Last Vital Signs Pulse 71 01/05/24 09:29 BP 122/72 01/05/24 09:29 BMI result Body Mass Index 38.4 Results AMB Hemoglobin A1c AMB Hemoglobin A1c 9.6 % Last Edit by HIEN Miles on 01/05/24 09:48 Results Reviewed Results Reviewed: Laboratory Last Values Glucose (Clinic) 132 mg/dL (60-115) H 01/05/24 09:36 Hgb A1c (Clinic) 9.6 % (4.0-6.0) H 01/05/24 09:38 Assessment & Plan Assessment & Plan (1) Diabetes: Code(s): E11.9 - Type 2 diabetes mellitus without complications Category: Medical Qualifiers: Diabetes mellitus complication status: with hyperglycemia Diabetes mellitus long wall mining machine tender insulin use: with long wall mining machine tender use Diabetes mellitus type: type 2 Qualified Code(s): E11.65 - Type 2 diabetes mellitus with hyperglycemia; Z79.4 - halfway (current) use of insulin Plan: Improved control but still hyperglycemic. Increase lantus to 50 units nightly. Will plan to increase ozempic if no hypoglycemia after first 4 doses. Return in 4 weeks Orders: Orders AMB Hemoglobin A1c 01/05/24 E11.9 - Type 2 diabetes mellitus without complications, Z79.4 - halfway (current) use of insulin Medications: Refilled Humalog KwikPen Insulin (insulin lispro) 20 units subcutaneous with breakfast 20 units subcutaneous with lunch;15 units with dinner 30 mL 3RF NS E11.9 - Type 2 diabetes mellitus without complications, Z79.4 - medical terminologist (current) use of insulin Discontinued insulin glargine (Lantus Solostar U-100 Insulin) Discontinued Reason: Doctor's Order 45 units (0.45 mL) subcut QPM 30 mL 3RF Coding Level of Care Code Est Pt Level 4 (66919) Diagnoses Type 2 diabetes mellitus with hyperglycemia, with long-term current use of insulin E11.65; Z79.4 Diabetes mellitus complication status: with hyperglycemia Diabetes mellitus long wall mining machine tender insulin use: with long wall mining machine tender use Diabetes mellitus type: type 2
[2024-01-05 09:29] VITALS: BP 122/72; PULSE 71; BMI 38.4
[2024-01-05 09:40] LABS: Glucose, Whole Blood 132 mg/dL (60-115)
== END 2024-01-05 10:06 | disposition home or self-care (01) ==
PROVIDERS: PCP Internal Medicine; Visit Provider Internal Medicine
DX: E11.65 Type 2 diabetes mellitus with hyperglycemia (principal); Z79.4 Long term (current) use of insulin

== ENCOUNTER → 2024-01-05 09:18 | Outpatient (BNVA) | payer OTHER, SELFPAY | PROVIDERS: PCP Internal Medicine; Visit Provider Internal Medicine | DX: E11.65 Type 2 diabetes mellitus with hyperglycemia (principal); Z79.4 Long term (current) use of insulin | CPT/HCPCS: 82947; 83036 ==

== ENCOUNTER 2024-01-20 09:13 | Outpatient (AMB) | payer OTHER, SELFPAY ==
--- NOTE | 2024-01-20 09:18 | A.OFFVIS_ITS ---
Vital Signs 01/20/24 09:20 Height 5 ft 1.6 in Weight 209 lb 7.026 oz BMI 38.8 BP 120/78 Blood Pressure Location Rt brachial Position Sitting Pulse 84 Pulse Source Pulse Oximeter Intake Visit Reasons: DM Intake Note: Patient presents today for a follow-up on Type 2 Diabetes Mellitus: Last Diabetic eye exam was on: DUE Last Podiatry exam was on: Does not see a District [address] Administrator Most recent HbA1c: 9.6%, 01/05/2024 Random Glucose- 202 mg/dL, Today Air Chief Marshal Required: Yes Air Chief Marshal Services: Air Chief Marshal Offered & Declined (Patient signed the refusal to accept interpretative services (Daughter)) Accompanied by: Daughter Allergies Seasonal Allergies Allergy (Intermediate, Verified 12/21/23 13:50) Itchy Eyes Penicillins Adverse Reaction (Severe, Verified 12/21/23 13:50) Rash HPI Comments Details: 63-year-old female with diabetes type 2 with long-term insulin dependence presenting for diabetic follow up Medical history: CAD, depression, htn, OA Current medications: Transitioned at first visit (NPH 15/01/15 and lispro , janumet) to metformin 2000mg daily, ozempic 0.25mg weekly (has only had one dose), Lantus 45, and humalog . At last visit 2 weeks ago lantus was increased to 50 units. Last A1C 01/04 9.6% -in August 9.7%. CGM-[employer] josy download 01/04 GMI 8.5%, today download active 46%, avg 182 with GMI 7.7%, high 46%, TGT 53% low 1%. Lows 60, 65, 68 all 6pm-8pm. Generally eating supper around 730/8. referred to eye doctor, podiatry at last visit On ARB, statin ROS CONSTITUTIONAL: Denies weight loss, fever and chills. HEENT: Denies changes in vision and hearing. RESPIRATORY: Denies SOB and cough. CV: Denies palpitations and CP GI: Denies abdominal pain, nausea, vomiting and diarrhea. : Denies dysuria and urinary frequency. MSK: Denies new myalgia and joint pain. SKIN: Denies rash and pruritus. NEUROLOGICAL: Denies headache PSYCHIATRIC: Denies recent changes in mood. PHYSICAL EXAM: GENERAL: Alert and oriented x 3. NAD EYES: EOMI. Anicteric. HENT: Moist mucous membranes. No scleral icterus. No cervical lymphadenopathy. LUNGS: Clear to auscultation bilaterally. CARDIOVASCULAR: Regular rate and rhythm. No murmur. No JVD. ABDOMEN: Soft, non-tender +bs EXTREMITIES: No edema. Non-tender. SKIN: No rashes or lesions. Warm. NEUROLOGIC: No focal neurological deficits. CN II-XII grossly intact PSYCHIATRIC: Cooperative. Appropriate mood and affect [facility] Social History Housing: House Patient Tobacco Use Status: Never used Tobacco e-Cigarette/Vaping Use: Never Used service: No Current occupational status: unemployed Current occupational exposures/hazards: No Cognitive needs: No Hearing needs: No Vision needs: Yes Physical Exam Vital Signs: Last Vital Signs Pulse 84 01/20/24 09:20 BP 120/78 01/20/24 09:20 BMI result Body Mass Index 38.8 Assessment & Plan Assessment & Plan (1) Diabetes: Code(s): E11.9 - Type 2 diabetes mellitus without complications Category: Medical Qualifiers: Diabetes mellitus type: type 2 Diabetes mellitus terminal manager insulin use: with terminal manager use Diabetes mellitus complication status: with hyperglycemia Qualified Code(s): E11.65 - Type 2 diabetes mellitus with hyperglycemia; Z79.4 - superintendent terminal (current) use of insulin Plan: Improving control Some predinner hypoglycemia. will decrease lunch humalog to 15 units so now . Will also decrease metformin from 2000mg daily to 1000mg daily due to GI upset. This should be okay as she is eating less and losing some weight Will follow up in 2.5 months when A1C is due They will call in the interim with any significant hypoglycemia or hyperglycemia (2) Depression: Code(s): F32.A - Depression, unspecified Category: Medical Qualifiers: Depression Type: major depressive disorder Major depression recurrence: recurrent Active/Remission status: in partial remission Qualified Code(s): F33.41 - Major depressive disorder, recurrent, in partial remission Plan: Patient asked for referral today. Referred to [facility]. Advised patient to call to make sure insurance is accepted. Orders: Referrals Behavioral Health Referral F32.A - Depression, unspecified Medications: Changed From metformin ER 2,000 mg (4 x 500 mg) PO DAILY 90 days 360 tabs 3RF To metformin ER 1,000 mg (2 x 500 mg) PO DAILY 90 days 180 tabs 3RF From Humalog KwikPen Insulin (insulin lispro) 20 units subcutaneous with breakfast 20 units subcutaneous with lunch;15 units with dinner 30 mL 3RF NS E11.9 - Type 2 diabetes mellitus without complications, Z79.4 - half-way (current) use of insulin To Humalog KwikPen Insulin (insulin lispro) 20 units subcutaneous with breakfast 15 units subcutaneous with lunch;15 units with dinner 30 mL 3RF NS E11.9 - Type 2 diabetes mellitus without complications, Z79.4 - half-way (current) use of insulin Refilled Ozempic (semaglutide) for 4 weeks 0.5 mg (0.736 mL) subcut QWEEK 9 mL 3RF NS E10.65 - Type 1 diabetes mellitus with hyperglycemia, E11.9 - Type 2 diabetes mellitus without complications, Z79.4 - superintendent terminal (current) use of insulin Coding Level of Care Code Est Pt Level 4 (52085) Diagnoses Type 2 diabetes mellitus with hyperglycemia, with long-term current use of i nsulin E11.65; Z79.4 Diabetes mellitus type: type 2 Diabetes mellitus custodial insulin use: with custodial use Diabetes mellitus complication status: with hyperglycemia Recurrent major depressive disorder, in partial remission F33.41 Depression Type: major depressive disorder Major depression recurrence: recurrent Active/Remission status: in partial remission
[2024-01-20 09:20] VITALS: BP 120/78; PULSE 84; BMI 38.8
[2024-01-20 09:30] LABS: Glucose, Whole Blood 202 mg/dL (60-115)
== END 2024-01-20 09:48 | disposition home or self-care (01) ==
PROVIDERS: PCP Internal Medicine; Visit Provider Internal Medicine
DX: E11.65 Type 2 diabetes mellitus with hyperglycemia (principal); Z79.4 Long term (current) use of insulin; F33.41 Major depressive disorder, recurrent, in partial remission

== ENCOUNTER → 2024-01-20 09:13 | Outpatient (BNVA) | payer OTHER, SELFPAY | PROVIDERS: PCP Internal Medicine; Visit Provider Internal Medicine | DX: E11.65 Type 2 diabetes mellitus with hyperglycemia (principal); F33.41 Major depressive disorder, recurrent, in partial remission; Z79.4 Long term (current) use of insulin; Z79.84 Long term (current) use of oral hypoglycemic drugs | CPT/HCPCS: 82947 ==

== ENCOUNTER 2024-03-09 10:54 | Outpatient (AMB) | payer OTHER, SELFPAY ==
--- NOTE | 2024-03-09 11:00 | A.OFFVIS_ITS ---
Vital Signs 03/09/24 11:09 Height 5 ft 1.6 in Weight 209 lb BMI 38.7 BP 130/78 Blood Pressure Location Rt brachial Position Sitting Pulse 95 Pulse Source Pulse Oximeter Intake Visit Reasons: DM Intake Note: Patient presents today for a follow-up on Type 2 Diabetes Mellitus: Last Diabetic eye exam was on: DUE Last Podiatry exam was on: Does not see a Physical Therapist Center Manager Most recent HbA1c: 9.6%, 01/05/2024 Random Glucose- 267 mg/dL, Today Public Information Officer Required: Yes Public Information Officer Services: Public Information Officer Offered & Declined (Patient signed the refusal to accept interpretative services (Daughter)) Public Information Officer Name: DAUGHTER Accompanied by: Daughter Allergies Seasonal Allergies Allergy (Intermediate, Verified 03/09/24 11:08) Itchy Eyes Penicillins Adverse Reaction (Severe, Verified 03/09/24 11:08) Rash HPI Comments Details: 63-year-old female with diabetes type 2 with long-term insulin dependence presenting for diabetic follow up Medical history: CAD, depression, htn, OA Current medications: metformin 1000mg daily (intolerant of 1999), ozempic 0.5mg weekly (has not had x one month), Lantus 50 (increased due to hyperglycemia), and humalog . Switched insurance covered and ozempic is required to have PA. since off ozempic has experience hyperglycemia. GMI now 8.5% at last visit 01/19 this had improved to 7.7% referred to eye doctor, podiatry at last visit On ARB, statin ROS CONSTITUTIONAL: Denies weight loss, fever and chills. HEENT: Denies changes in vision and hearing. RESPIRATORY: Denies SOB and cough. CV: Denies palpitations and CP GI: Denies abdominal pain, nausea, vomiting and diarrhea. : Denies dysuria and urinary frequency. MSK: Denies new myalgia and joint pain. SKIN: Denies rash and pruritus. NEUROLOGICAL: Denies headache PSYCHIATRIC: Denies recent changes in mood. PHYSICAL EXAM: GENERAL: Alert and oriented x 3. NAD EYES: EOMI. Anicteric. HENT: Moist mucous membranes. No scleral icterus. No cervical lymphadenopathy. LUNGS: Clear to auscultation bilaterally. CARDIOVASCULAR: Regular rate and rhythm. No murmur. No JVD. ABDOMEN: Soft, non-tender +bs EXTREMITIES: No edema. Non-tender. SKIN: No rashes or lesions. Warm. NEUROLOGIC: No focal neurological deficits. CN II-XII grossly intact PSYCHIATRIC: Cooperative. Appropriate mood and affect [facility] Surgical History (Updated 03/09/24 @ 11:09 by HIEN Miles) No pertinent past surgical history Family History Father No problems noted. Mother No problems noted. Social History Housing: House Patient Tobacco Use Status: Never used Tobacco e-Cigarette/Vaping Use: Never Used service: No Current occupational status: unemployed Current occupational exposures/hazards: No Cognitive needs: No Hearing needs: No Vision needs: Yes Results Reviewed Results Reviewed: Laboratory Last Values Glucose (Clinic) 267 mg/dL (60-115) H 03/09/24 11:00 Assessment & Plan Assessment & Plan (1) Diabetes: Code(s): E11.9 - Type 2 diabetes mellitus without complications Category: Medical Qualifiers: Diabetes mellitus type: type 2 Diabetes mellitus senior living insulin use: with senior living use Diabetes mellitus complication status: with hyperglycemia Qualified Code(s): E11.65 - Type 2 diabetes mellitus with hyperglycemia; Z79.4 - skilled nursing (current) use of insulin Plan: With hyperglycemia Worse glucose control off GLP. Restart ozempic pending PA. Requires dose on Lantus at 50 units daily for glycemic control continue metformin at 1000mg daily (intolerant of higher dose) Return in 5 weeks-due for A1C Medications: Changed From insulin glargine (Lantus Solostar U-100 Insulin) 50 units subcut QPM E11.65 - Type 2 diabetes mellitus with hyperglycemia, Z79.4 - skilled nursing (current) use of insulin To Lantus Solostar U-100 Insulin (insulin glargine) 50 units (0.5 mL) subcut QPM 45 mL 3RF NS E11.65 - Type 2 diabetes mellitus with hyperglycemia, Z79.4 - skilled nursing (current) use of insulin Refilled Ozempic (semaglutide) for 4 weeks 0.5 mg (0.736 mL) subcut QWEEK 9 mL 3RF NS E10.65 - Type 1 diabetes mellitus with hyperglycemia, E11.9 - Type 2 diabetes mellitus without complications, Z79.4 - skilled nursing (current) use of insulin Coding Level of Care Code Est Pt Level 4 (09078) Diagnoses Type 2 diabetes mellitus with hyperglycemia, with long-term current use of insulin E11.65; Z79.4 Diabetes mellitus type: type 2 Diabetes mellitus senior living insulin use: with extermination inspector use Diabetes mellitus complication status: with hyperglycemia
[2024-03-09 11:05] LABS: Glucose, Whole Blood 267 mg/dL (60-115)
[2024-03-09 11:09] VITALS: BP 130/78; PULSE 95; BMI 38.7
== END 2024-03-09 11:16 | disposition home or self-care (01) ==
PROVIDERS: PCP Internal Medicine; Visit Provider Internal Medicine
DX: E11.65 Type 2 diabetes mellitus with hyperglycemia (principal); Z79.4 Long term (current) use of insulin

== ENCOUNTER → 2024-03-09 10:54 | Outpatient (BNVA) | payer OTHER, SELFPAY | PROVIDERS: PCP Internal Medicine; Visit Provider Internal Medicine | DX: E11.65 Type 2 diabetes mellitus with hyperglycemia (principal); Z79.4 Long term (current) use of insulin | CPT/HCPCS: 82947 ==

== ENCOUNTER 2024-03-28 13:05 | Outpatient (AMB) | payer OTHER, SELFPAY ==
[2024-03-28 13:12] VITALS: BP 124/76; PULSE 77; O2SAT 95
--- NOTE | 2024-03-28 13:12 | A.OFFPC_ITS ---
Vital Signs 03/28/24 13:12 Height 5 ft 1.6 in BMI Reason not done Patient refused/unable BP 124/76 Blood Pressure Location Lt brachial Position Sitting Pulse 77 Pulse Source Pulse Oximeter Pulse Oximetry (%) 95 Oxygen Delivery Method Room Air Intake Visit Reasons: 3 months f/up Allergies Seasonal Allergies Allergy (Intermediate, Verified 03/28/24 13:12) Itchy Eyes Penicillins Adverse Reaction (Severe, Verified 03/28/24 13:12) Rash Medication List - Last Reconciled 03/28/24 by Maximilian Gonzalez MD antiarthritic combination no.2 (glucosamine-chondroitin) 900 mg PO DAILY baclofen 10 mg PO DAILY bisoprolol fumarate 5 mg PO BID 90 days escitalopram oxalate 20 mg PO .q am FreeStyle Ramy 3 [place] (blood-glucose meter,continuous) DIRECTED NS FreeStyle Ramy 3 Sensor (blood-glucose sensor) every 14 days NS Humalog KwikPen Insulin (insulin lispro) 20 units subcutaneous with breakfast 15 units subcutaneous with lunch;15 units with dinner NS hydroxyzine HCl 25 mg PO BEDTIME Lantus Solostar U-100 Insulin (insulin glargine) 50 units (0.5 mL) subcut QPM NS metformin ER 1,000 mg (2 x 500 mg) PO DAILY 90 days montelukast (Singulair) 10 mg PO BEDTIME nitroglycerin 0.4 mg sublingual ONCE PRN omeprazole 20 mg PO .q pm Ozempic (semaglutide) 0.5 mg (0.736 mL) subcut QWEEK NS pen needle, diabetic (Easy Comfort Pen [place]) 6 times per DAY rosuvastatin 20 mg PO DAILY sennosides-docusate sodium 8.6-50 mg (Senokot-S) 2 tab-caps (2 x 8.6-50 mg) PO BEDTIME 90 days telmisartan-amlodipine 80-5 mg 1 tab PO DAILY Trulicity (dulaglutide) 0.75 mg (0.5 mL) subcut QWEEK NS Tobacco use date assessed: 03/28/24 Dental Screening Dental Screen Date: 03/28/24 Did you have a dental visit in the last 12 months?: Yes Did you have a dental problem in the last 6 months where you did not have access to dental care?: No Was dental information given to patient?: Patient has dentist HPI 3 months f/up HPI Details - The patient is a 63-year-old female pr esenting for regular follow-up appointment - Hyperglycemia noted to be persistent a nd worsened by issues with medication coverage for Ozempic. - diabetes now managed by endocrinology - Patient presents with insomnia. [facility] psych med prescriber now all psychiatric medications through them, recently increased hydroxyzine which is causing severe drowsiness even during the day - Recent upper respiratory infection. S tarted 3 days ago, coughing chest congestion with mild fever Antibiotic sent since patient is diabetic Coronary artery disease: Has appointment coming up with the endocrinology Patient is morbidly obese having difficulty losing weight Hypertension stable, continue blood pressure medications Osteoarthritis multiple joint managed with Tylenol Allergies stable with montelukast GERD stable with omeprazole 20 mg Patient is on rosuvastatin 20 mg for lipid disorder Taking senna for constipation Review of Systems - Dermatologic: Reports itching. Chroni c stable with hydroxyzine - Endocrine: Reports high blood sugar le vels. - Respiratory: Reports cough with white sputum and mild fever. - Psychiatric: Reports depression. - General: No fever no chills - Neurological: No headaches no dizziness - Ear nose throat: No sore throat no hearing difficulty no ear pain - Cardiovascular: No syncope, no chest pain, no palpitations - Gastrointestinal: No nausea vomiting or diarrhea - Genitourinary: No dysuria , no blood in urine Physical Exam General: No acute distress HEENT: No acute findings Neck: Supple Respiratory system: Able to talk in full sentences, no audible wheeze cardiovascular: S1-S2 regular in rate and rhythm Gastrointestinal: No pain Extremities: Mild ankle swelling Skin: Normal turgor Patient Instructions - Decrease the dosage of hydroxyzine if drowsiness is noted. - Do not administer hydroxyzine unless t he patient experiences significant itching. - Complete antibiotics as prescribed for the respiratory infection. - Obtain blood work today as ordered. - Attend all upcoming specialist appoint ments with cardiology, endocrinology, and gynecology in March and April. Follow-up [address] [facility] Surgical History No pertinent past surgical history Family History Father No problems noted. Mother No problems noted. Social History Housing: House Patient Tobacco Use Status: Never used Tobacco e-Cigarette/Vaping Use: Never Used service: No Current occupational status: unemployed Current occupational exposures/hazards: No Cognitive needs: No Hearing needs: No Vision needs: Yes Questionnaire Thrive Questionnaire Date Thrive assessed: 03/28/24 I am a: Patient What is your living situation today?: I do not have a steady places to live I am temporarily staying with others Within the past 12 months, did the food you bought not last and you didn't have the money to get more?: Often true Within the past 12 months, did you worry whether your food would run out before you got money to buy more?: Often true Do you have trouble paying for medicines?: Yes Do you have trouble getting transportation to medical appointments?: Yes Do you have trouble paying your heating and electricity bill?: Yes Do you have trouble taking care of your child, family member or friend?: Yes Do you have trouble with day-to-day activities such as bathing, preparing meals, shopping, managing finances, etc.?: Yes Are you currently unemployed and looking for a job?: I choose not to answer this question Are you interested in more education?: No Currently or been in a relationship where the following occur: I choose not to answer THRIVE Score: 5 AUDIT C Alcohol Use Questionnaire (AUDIT-C) 1. How often do you have a drink containing alcohol?: Never 3. How often do you have six or more drinks on one occasion?: Never Total Score: 0 Score Reviewed/Action Taken: Yes SUMAYA-7 AMB Questionnaire SUMAYA-7 Date SUMAYA - 7 assessed: 11/30/23 Not being able to stop or control worryin = More than half the days Source: Developed by Drs. Pratik Tolbert, Sue Valiente, Ozzie Mckenzie and colleagues, with an educational kahlil from [employer]. Physical exam (Primary Care) Vital Signs: Last Vital Signs Pulse 77 03/28/24 13:12 BP 124/76 03/28/24 13:12 Pulse Ox 95 03/28/24 13:12 Oxygen Delivery Method Room Air 03/28/24 13:12 Tobacco/Smoking Status: Tobacco use Status Tobacco use date assessed 03/28/24 03/28/24 13:13 Patient Tobacco Use Status Never used Tobacco 03/28/24 13:13 e-Cigarette/Vaping Use Never Used 03/28/24 13:13 Thrive Assessment: Date of Thrive Assessment Date Thrive assessed 03/28/24 03/28/24 13:13 Currently or been in a relationship where the following occur: I choose not to answer Coding Level of Care Code Est Pt Level 4 (59143) Complex EM visit Add On G2211 Diagnoses Diabetes mellitus type 2, insulin dependent E11.9; Z79.4 Coronary artery disease involving [place] coronary artery of [place] heart without angina pectoris I25.10 Associated angina: without angina Coronary Disease-Associated Artery/Lesion type: [place] artery [place] vs. transplanted heart: [place] heart Severe episode of recurrent major depressive disorder, without psychotic features F33.2 Psychotic features: without psychotic features PTSD (post-traumatic stress disorder) F43.10 Class 2 severe obesity due to excess calories with serious comorbidity and body mass index (BMI) of 38.0 to 38.9 in adult E66.01; Z68.38 Body mass index: BMI 38.0-38.9 Obesity classification: adult class 2 (BMI 35 - 39.9) Serious obesity comorbidity presence: with serious comorbidity Difficulty sleeping G47.9 Insulin long-term use Z79.4 Chronic GERD K21.9 Chronic constipation K59.09 Pruritus L29.9 Assessment & Plan Assessment & Plan (1) Diabetes mellitus type 2, insulin dependent: Code(s): E11.9 - Type 2 diabetes mellitus without complications; Z79.4 - USP (current) use of insulin Category: Medical (2) CAD (coronary artery disease): Code(s): I25.10 - Atherosclerotic heart disease of [place] coronary artery without angina pectoris Category: Medical Qualifiers: Associated angina: without angina Coronary Disease-Associated Artery/Lesion type: [place] artery [place] vs. transplanted heart: [place] heart Qualified Code(s): I25.10 - Atherosclerotic heart disease of [place] coronary artery without angina pectoris (3) Depression, major, severe recurrence: Code(s): F33.2 - Major depressive disorder, recurrent severe without psychotic features Category: Medical Qualifiers: Psychotic features: without psychotic features Qualified Code(s): F33.2 - Major depressive disorder, recurrent severe without psychotic features (4) PTSD (post-traumatic stress disorder): Code(s): F43.10 - Post-traumatic stress disorder, unspecified Category: Medical (5) Obesity due to excess calories: Code(s): E66.09 - Other obesity due to excess calories Category: Medical Qualifiers: Body mass index: BMI 38.0-38.9 Obesity classification: adult class 2 (BMI 35 - 39.9) Serious obesity comorbidity presence: with serious comorbidity Qualified Code(s): E66.01 - Morbid (severe) obesity due to excess calories; Z68.38 - Body mass index [BMI] 38.0-38.9, adult (6) Difficulty sleeping: Code(s): G47.9 - Sleep disorder, unspecified Category: Medical (7) Insulin long-term use: Code(s): Z79.4 - USP (current) use of insulin Category: Medical (8) Chronic GERD: Code(s): K21.9 - Gastro-esophageal reflux disease without esophagitis Category: Medical (9) Chronic constipation: Code(s): K59.09 - Other constipation Category: Medical (10) Pruritus: Code(s): L29.9 - Pruritus, unspecified Category: Medical Plan - The patient is a 63-year-old female presenting for regular follow-up appointment - Hyperglycemia noted to be persistent and worsened by issues with medication coverage for Ozempic. - diabetes now managed by endocrinology - Patient presents with insomnia. Seeing a psych med prescriber now all psychiatric medications through them, recently increased hydroxyzine which is causing severe drowsiness even during the day - Recent upper respiratory infection. Started 3 days ago, coughing chest congestion with mild fever Antibiotic sent since patient is diabetic Coronary artery disease: Has appointment coming up with the endocrinology Patient is morbidly obese having difficulty losing weight Hypertension stable, continue blood pressure medications Osteoarthritis multiple joint managed with Tylenol Allergies stable with montelukast GERD stable with omeprazole 20 mg Patient is on rosuvastatin 20 mg for lipid disorder Taking senna for constipation Review of Systems - Dermatologic: Reports itching. Chronic stable with hydroxyzine - Endocrine: Reports high blood sugar levels. - Respiratory: Reports cough with white sputum and mild fever. - Psychiatric: Reports depression. - General: No fever no chills - Neurological: No headaches no dizziness - Ear nose throat: No sore throat no hearing difficulty no ear pain - Cardiovascular: No syncope, no chest pain, no palpitations - Gastrointestinal: No nausea vomiting or diarrhea - Genitourinary: No dysuria , no blood in urine Physical Exam General: No acute distress HEENT: No acute findings Neck: Supple Respiratory system: Able to talk in full sentences, no audible wheeze cardiovascular: S1-S2 regular in rate and rhythm Gastrointestinal: No pain Extremities: Mild ankle swelling Skin: Normal turgor Patient Instructions - Decrease the dosage of hydroxyzine if drowsiness is noted. - Do not administer hydroxyzine unless the patient experiences significant itching. - Complete antibiotics as prescribed for the respiratory infection. - Obtain blood work today as ordered. - Attend all upcoming specialist appointments with cardiology, endocrinology, and gynecology in March and April. Follow-up 4 months Orders: Orders Complete Blood Count Auto Diff Today E11.9 - Type 2 diabetes mellitus without complications, E66.01 - Morbid (severe) obesity due to excess calories, F33.2 - Major depressive disorder, recurrent severe without psychotic features, F43.10 - Post-traumatic stress disorder, unspecified, G47.9 - Sleep disorder, unspecified, I25.10 - Atherosclerotic heart disease of [place] coronary artery without angina pectoris, Z68.38 - Body mass index [BMI] 38.0-38.9, adult, Z79.4 - remote computer terminal operator (current) use of insulin LDL Cholesterol Direct Today E11.9 - Type 2 diabetes mellitus without complications, E66.01 - Morbid (severe) obesity due to excess calories, F33.2 - Major depressive disorder, recurrent severe without psychotic features, F43.10 - Post-traumatic stress disorder, unspecified, G47.9 - Sleep disorder, unspecified, I25.10 - Atherosclerotic heart disease of [place] coronary artery without angina pectoris, Z68.38 - Body mass index [BMI] 38.0-38.9, adult, Z79.4 - remote computer terminal operator (current) use of insulin Comprehensive Met. Panel Today E11.9 - Type 2 diabetes mellitus without complications, E66.01 - Morbid (severe) obesity due to excess calories, F33.2 - Major depressive disorder, recurrent severe without psychotic features, F43.10 - Post-traumatic stress disorder, unspecified, G47.9 - Sleep disorder, unspecified, I25.10 - Atherosclerotic heart disease of [place] coronary artery without angina pectoris, Z68.38 - Body mass index [BMI] 38.0-38.9, adult, Z79.4 - USP (current) use of insulin Medications: New azithromycin Take 2 tablets today then 1 daily 250 mg PO ONCE 5 days 6 tabs 0RF J06.9 - Acute upper respiratory infection, unspecified
== END 2024-03-28 13:41 | disposition home or self-care (01) ==
PROVIDERS: PCP Internal Medicine; Visit Provider Internal Medicine
DX: E11.9 Type 2 diabetes mellitus without complications (principal); Z79.4 Long term (current) use of insulin; F33.2 Major depressive disorder, recurrent severe without psychotic features; E66.01 Morbid (severe) obesity due to excess calories; Z68.38 Body mass index [BMI] 38.0-38.9, adult; I25.10 Atherosclerotic heart disease of native coronary artery without angina pectoris; F43.10 Post-traumatic stress disorder, unspecified; G47.9 Sleep disorder, unspecified; K21.9 Gastro-esophageal reflux disease without esophagitis; K59.09 Other constipation; L29.9 Pruritus, unspecified

== ENCOUNTER 2024-03-28 13:05 | Outpatient (REF) | payer OTHER, SELFPAY ==
[2024-03-28 16:14] LABS: MANUAL DIFF FLAG NO
[2024-03-28 16:28] LABS: Basophils Absolute Auto 0.1 X10*3/uL (0.0-0.2); Basophils Percent Auto 0.7 % (0-2); Eosinophils Absolute Auto 1.2 X10*3/uL (0.0-0.4); Hemoglobin 11.9 g/dl (12.0-16.0); Imm Gran Abs Auto 0.03 X10*3/uL (0.00-0.03); Imm Gran Pct Auto 0.4 % (0.0-0.4); Lymphocytes Absolute Auto 2.8 X10*3/uL (1.2-4.9); Lymphocytes Percent Auto 34.6 % (20-40); Mean Corpuscular HGB Conc 32.2 g/dl (31.0-35.0); Mean Corpuscular Hemoglobin 28.1 pg (27.0-33.0); Mean Corpuscular Volume 87.5 fL (80.0-98.0); Mean Platelet Volume 10.6 fL (9.4-12.3); Monocytes Absolute Auto 0.6 X10*3/uL (0.1-1.2); Monocytes Percent Auto 7.2 % (2-11); Neutrophils Absolute Auto 3.5 x10*3/uL (2.0-8.3); Neutrophils Percent Auto 42.1 % (45-73); Platelet Count 169 X10*3/uL (160-400); Red Blood Count 4.23 X10*6/uL (4.20-5.50); Red Cell Distribution Width 13.1 % (11.0-16.0); White Blood Count 8.2 X10*3/uL (4.8-10.8)
[2024-03-28 17:05] LABS: Alanine Aminotransferase 21 U/L (0-31); Albumin Level 3.7 g/dL (3.5-5.0); Alkaline Phosphatase 85 U/L (39-117); Anion Gap 9 (12-20); Aspartate Amino Transferase 17 U/L (5-31); Bilirubin Total 0.7 mg/dL (0.0-1.0); Blood Urea Nitrogen 26 mg/dL (9-16); Calcium 9.2 mg/dL (8.4-10.2); Carbon Dioxide 30 mmol/L (22-29); Chloride 109 mmol/L (96-108); Estimated Glomerular Filt Rate > 60; Glucose Random 117 mg/dL (60-115); Potassium 4.2 mmol/L (3.3-5.1); Sodium 144 mmol/L (135-145); Total Protein 6.7 g/dL (6.5-8.0)
[2024-03-29 12:09] LABS: LDL Cholesterol Direct 76 mg/dL (<100)
== END 2024-03-28 13:06 | disposition home or self-care (01) ==
LOC: HO.HMGCLDS 13:05
PROVIDERS: PCP Internal Medicine; Visit Provider Internal Medicine
DX: E11.9 Type 2 diabetes mellitus without complications (principal); I25.10 Atherosclerotic heart disease of native coronary artery without angina pectoris; F33.2 Major depressive disorder, recurrent severe without psychotic features; F43.10 Post-traumatic stress disorder, unspecified; E66.01 Morbid (severe) obesity due to excess calories; Z68.38 Body mass index [BMI] 38.0-38.9, adult; G47.9 Sleep disorder, unspecified; Z79.4 Long term (current) use of insulin
CPT/HCPCS: 36415; 80053; 83721; 85025; 99212

== ENCOUNTER 2024-04-03 12:40 | Outpatient (AMB) | payer OTHER, SELFPAY ==
[2024-04-03 12:58] VITALS: BP 132/68; PULSE 74; BMI 40.0
--- NOTE | 2024-04-03 12:58 | MHC.OFFVIS ---
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 Clinical Research Manager Required: Yes Clinical Research Manager Services: Clinical Research Manager Offered & Declined Accompanied by: Daughter Allergies Seasonal Allergies Allergy (Intermediate, Verified 03/28/24 13:12) Itchy Eyes Penicillins Adverse Reaction (Severe, Verified 03/28/24 13:12) Rash Medication List - Last Reconciled 04/03/24 by Esteban Zarco MD antiarthritic combination no.2 (glucosamine-chondroitin) 900 mg PO DAILY baclofen 10 mg PO DAILY bisoprolol fumarate 5 mg PO BID 90 days escitalopram oxalate 20 mg PO .q am FreeStyle Ramy 3 [place] (blood-glucose meter,continuous) DIRECTED NS FreeStyle Ramy 3 Sensor (blood-glucose sensor) every 14 days NS Humalog KwikPen Insulin (insulin lispro) 20 units subcutaneous with breakfast 15 units subcutaneous with lunch;15 units with dinner NS hydroxyzine HCl 25 mg PO BEDTIME Lantus Solostar U-100 Insulin (insulin glargine) 50 units (0.5 mL) subcut QPM NS metformin ER 1,000 mg (2 x 500 mg) PO DAILY 90 days montelukast (Singulair) 10 mg PO BEDTIME nitroglycerin 0.4 mg sublingual ONCE PRN omeprazole 20 mg PO .q pm Ozempic (semaglutide) 0.5 mg (0.736 mL) subcut QWEEK NS pen needle, diabetic (Easy Comfort Pen [place]) 6 times per DAY rosuvastatin 20 mg PO DAILY sennosides-docusate sodium 8.6-50 mg (Senokot-S) 2 tab-caps (2 x 8.6-50 mg) PO BEDTIME 90 days telmisartan-amlodipine 80-5 mg 1 tab PO DAILY Trulicity (dulaglutide) 0.75 mg (0.5 mL) subcut QWEEK NS HPI Comments Details: Lauren was referred here for evaluation of shortness of breath exertion and possible prior coronary artery disease. Patient is a 63-year-old [place] woman, who speaks Ukrainian. History was obtained with help of the daughter in the room who acts as military analyst. They declined a certified military analyst. As per the daughter last year [place] patient had been evaluated and was told that she had heart attack but was manage medically. Her symptoms are unclear at this point time. However she was told that her symptoms and management is good on current medical therapy. She was subsequently has moved to [facility]. As per the daughter she gets exertional shortness of breath with minimal exertion. Patient was not very participating in her history taking. [facility] Surgical History No pertinent past surgical history Family History Father No problems noted. Mother No problems noted. Social History Housing: House Patient Tobacco Use Status: Never used Tobacco e-Cigarette/Vaping Use: Never Used service: No Current occupational status: unemployed Current occupational exposures/hazards: No Cognitive needs: No Hearing needs: No Vision needs: Yes Review of Systems Const Denies weakness ENT Denies dizziness Card Reports chest pain, Denies chest pain with activity, Denies syncope, Denies rapid heart rate, Denies pedal edema, Denies edema, Denies leg edema, Denies lightheadedness, Reports palpitations, Reports dyspnea, Denies dyspnea on exertion and Denies orthopnea Resp Denies cough, Reports dyspnea and Denies dyspnea on exertion GI Denies hematochezia and Denies change in stool character Musc Denies abnormal gait, Denies muscle cramps, Denies muscle weakness, Denies numbness, Denies radiating pain into limb and Denies tingling Neuro Denies abnormal gait, Denies dizziness, Denies syncope, Denies numbness, Denies tingling and Denies weakness Endo Reports palpitations Physical Exam Vital Signs: Last Vital Signs Pulse 74 04/03/24 12:58 BP 132/68 04/03/24 12:58 BMI result Body Mass Index 40.0 Const General: cooperative, comfortable, no acute distress, alert and awake Nutritional Appearance: obese Orientation/consciousness: patient oriented x3 HEENT Head: Yes normocephalic and Yes atraumatic Neck Neck: Yes trachea midline, Yes supple and Yes no JVD Resp Effort & Inspection: normal respiratory effort Auscultation: wheezes scattered wheezes and diminished lung sounds Cardio Jugular venous distension: no JVD Palpation: normal PMI Rate: regular rate Rhythm: regular rhythm Heart sounds: S1 normal heart sound present, S2 normal heart sound present, no click, no gallops, no murmurs and no rubs GI Auscultation: normal bowel sounds Skin General skin exam: no rashes or lesions noted Neuro General: patient oriented x3 and no focal motor deficits Extrem General: Yes no clubbing, cyanosis or edema Office Procedures EKG Details: EKG shows normal sinus rhythm with septal QS pattern as well as Q-waves in high lateral leads suggestive of lateral infarct with inferior and inferolateral T-wave inversion suggestive of ischemia [id number], Complete Assessment & Plan Assessment & Plan (1) Exertional dyspnea: Code(s): R06.09 - Other forms of dyspnea Category: Medical Plan: Exertional shortness of breath in this elderly woman with history of possible IA and suggestion of lateral Q-waves on EKG. No old records available from her [place] at this point time. She has significant risk factors for underlying cardiovascular disease especially ischemic heart disease, EKGs abnormal. She was limited exercise capacity. She requires further workup and is willing to undergo workup as per the daughter. I would suggest an echocardiogram near future to assess for LV systolic and diastolic function to evaluate for regional wall motion abnormality. He was she was significant LV systolic dysfunction will pursue cardiac catheterization otherwise will pursue vasodilating myocardial perfusion imaging to evaluate for myocardial ischemia. Meanwhile she is advised to avoid strenuous exertion. She is advised to continue low-dose aspirin therapy. Continue aggressive blood pressure control which is currently well optimized. Diabetes management as per you with goal hemoglobin A1c less than 7%. Continue high-intensity statin therapy with target goal LDL less than 70 mg/dL. Will follow up in the clinic in near future. Thank you for allowing me to partake in his care Orders: Orders CA echo transthoracic complete Today R06.09 - Other forms of dyspnea CA lexiscan stress w alfredo 1 Week R06.09 - Other forms of dyspnea Coding Level of Care Code New Pt Level 4 (30741) Complex EM visit Add On G2211 Diagnoses Exertional dyspnea R06.09 CPT Codes EKG - CPT: 35112-[id number], Complete ([id number])
== END 2024-04-03 13:28 | disposition home or self-care (01) ==
PROVIDERS: PCP Internal Medicine; Visit Provider Internal Medicine Cardiovascular Disease
DX: R06.09 Other forms of dyspnea (principal)
CPT/HCPCS: 93010; 99204; G2211

== ENCOUNTER → 2024-04-03 12:40 | Outpatient (BNVA) | payer OTHER, SELFPAY | PROVIDERS: PCP Internal Medicine; Visit Provider Internal Medicine Cardiovascular Disease | DX: R06.09 Other forms of dyspnea (principal); R94.31 Abnormal electrocardiogram [ECG] [EKG] | CPT/HCPCS: 93005; 99202 ==

== ENCOUNTER → 2024-04-10 09:02 | Outpatient (REF) | payer OTHER, SELFPAY ==
--- NOTE | 2024-04-10 09:06 | CA_ITS ---
Transthoracic Echocardiogram Patient (Last, First, Middle): Lauren Mckenna, Gender: Female Date of : 1960 Age: 63 Procedure Date: 04/10/2024 Procedure Type: Transthoracic Echocardiogram Location: OP Height: 154.94 cm Weight: 95.71 kg BSA: 1.93 m2 Heart Rate: 67 bpm BP: 132 / 68 mmHg Histology Technician: ANNA Referring MD: Esteban Zarco MD Symptoms: R06.09 - Other forms of dyspnea Study Quality: Adequate ECG Rhythm: Sinus Conclusions: - The left ventricular systolic function is normal. The calculated ejection fraction is 56% by biplane method. - There is mild calcification of the aortic valve. - There is mild mitral annular calcification. - No obvious valvular pathology seen on this study. - Small plaque is seen in the sinuses of Valsalva. Findings Left Ventricle Normal left ventricular cavity size. The left ventricular systolic function is normal. The calculated ejection fraction is 56% by biplane method. There is no evidence of regional wall motion abnormalities. Evidence suggests grade I (mild) diastolic dysfunction. There is mild septal asymmetric hypertrophy. Right Ventricle Mildly increased right ventricular cavity size. There is normal right ventricular systolic function. Atria Both atria are normal in size. Aortic Valve There is a normal trileaflet aortic valve. There is mild calcification of the aortic valve. There is no aortic valve stenosis. There is no aortic valve regurgitation. Mitral Valve There is mild anterior mitral leaflet thickening. There is mild mitral annular calcification. There is trace mitral valve regurgitation. There is no mitral valve stenosis. Pulmonic Valve The pulmonic valve is likely normal. Tricuspid Valve There is mild tricuspid valve regurgitation. There is no evidence of pulmonary hypertension. Great Vessels The asc aorta and aortic arch are normal in size. Small plaque is seen in the sinuses of Valsalva. Venous The inferior vena cava is normal in size and collapses less than 50% with inspiration. Pericardium/Pleural There is no evidence of pericardial effusion. Prior Study Comparison No prior study available for comparison. Recommendations, Care & Conclusions No obvious valvular pathology seen on this study. Measurements 2D Linear Measurements IVSd: 1.29 0.6-0.9/0.6-1.0 cm LVIDd: 4.09 3.9-5.3/4.2-5.9 cm LVIDd Index: 2.12 2.4-3.2/2.2-3.1 cm/m2 LVIDs: 3.03 2.0-3.6 cm LVPWd: 0.89 0.7-1.1 cm LA Diam: 3.60 2.7-3.8/3.0-4.0 cm LAIDs Index: 1.87 1.5-2.3 cm/m2 LV Mass: 185.44 67-162/88-224 g LV Mass Index: 96.08 43-95/49-115 g/m2 LVOT Diam: 1.90 3.0+(-)1.3 cm 2D Systolic Function EF 4C: 66.90 >55% EF 2C: 41.60 >55% EF BiP: 55.90 >55% Mitral Valve MV VTI: 0.33 MV Pk Lobo: 1.29 MV Mn Lobo: 0.83 MV Pk Grad: 7.00 MV Mn Grad: 3.00 MV Pk E: 1.07 MV PK A: 1.11 MV Decel Time: 204.00 E/A: 1.00 E'Lateral: 6.42 E'Medial: 4.35 E/E' Med: 24.60 E/E' Lat: 16.70 PHT: 60.00 MVA PHT: 3.67 MVA Continuity: 2.28 Decel Todd: 5.23 Aortic Valve AoV Pk Lobo: 1.53 AoV Mn Lobo: 0.98 AoV VTI: 0.36 AoV Pk Grad: 9.00 Aov Mn Grad: 4.00 SYLWIA Cont.VTI: 2.12 LVOT LVOT Pk Lobo: 1.02 LVOT Mn Lobo: 0.75 LVOT VTI: 0.27 LVOT Pk Grad: 4.00 LVOT Mn Grad: 2.00 LVOT Diam: 1.90 LVOT Area: 2.84 Diastolic Function MV Pk E: 1.07 MV Pk A: 1.11 E/A: 1.00 E'Medial: 4.35 E/E' Med: 24.60 E' Laterial: 6.42 E/E' Lat: 16.70 Right Ventricle TAPSE (mm): 23.50 TVS' Lobo: 9.32 Tricuspid Valve TR Pk Lobo: 2.44 TR Pk Grad: 24.00 RA Press: 8.00 RVSP: 32.00 Great Vessels Aorta Sinus of Valsalva: 2.60 2.0-3.5 cm Ao Asc: 3.00 2.1-3.4 cm Ao Arch: 3.00 Pulmonary Veins Pulm Vein S/D 1.30 Pulmonary Valve PV Pk Lobo: 0.70 Peak PV Grad: 2.00 Updated in Other Vendor System with Status of Final Eran Cruz MD electronically signed on 04/10/2024 3:23:22 PM with status of Final
== END ==
LOC: HO.CARD 09:02
PROVIDERS: PCP Internal Medicine; Visit Provider Internal Medicine Cardiovascular Disease
DX: R06.09 Other forms of dyspnea (principal)
CPT/HCPCS: 93306

== ENCOUNTER → 2024-04-10 09:06 | Outpatient (BNV) | payer OTHER, SELFPAY | PROVIDERS: PCP Internal Medicine; Visit Provider Internal Medicine | DX: I35.8 Other nonrheumatic aortic valve disorders (principal); I34.81 Nonrheumatic mitral (valve) annulus calcification; I36.1 Nonrheumatic tricuspid (valve) insufficiency | CPT/HCPCS: 93306 ==

== ENCOUNTER 2024-04-13 10:40 | Outpatient (AMB) | payer OTHER, SELFPAY ==
--- NOTE | 2024-04-13 10:46 | A.OFFVIS_ITS ---
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 Most recent HbA1c: 8.9%, 04/13/2024 Random Glucose- 176 mg/dL, Today Steward/Stewardess Bath Required: Yes Steward/Stewardess Bath Services: Steward/Stewardess Bath Offered & Declined (Patient signed the refusal to accept interpretative services (Daughter)) Steward/Stewardess Bath Name: DAUGHTER Accompanied by: Daughter Allergies Seasonal Allergies Allergy (Intermediate, Verified 03/28/24 13:12) Itchy Eyes Penicillins Adverse Reaction (Severe, Verified 03/28/24 13:12) Rash HPI Comments Details: 63-year-old female with diabetes type 2 with long-term insulin dependence presenting for diabetic follow up Medical history: CAD, depression, htn, OA Current medications: metformin 1000mg daily (intolerant of 1999), trulicity 0.75 (insurance no longer covered ozempic 0.5mg weekly), Lantus 50 (increased due to hyperglycemia), and humalog (she was out for past two weeks has to be switched to generic). since off ozempic nad the humalog has experience hyperglycemia. GMI now 8.6% at last visit 01/19 this had improved to 7.7% referred to eye doctor, podiatry at last visit On ARB, statin ROS CONSTITUTIONAL: Denies weight loss, fever and chills. HEENT: Denies changes in vision and hearing. RESPIRATORY: Denies SOB and cough. CV: Denies palpitations and CP GI: Denies abdominal pain, nausea, vomiting and diarrhea. : Denies dysuria and urinary frequency. MSK: Denies new myalgia and joint pain. SKIN: Denies rash and pruritus. NEUROLOGICAL: Denies headache PSYCHIATRIC: Denies recent changes in mood. PHYSICAL EXAM: GENERAL: Alert and oriented x 3. NAD EYES: EOMI. Anicteric. HENT: Moist mucous membranes. No scleral icterus. No cervical lymphadenopathy. LUNGS: Clear to auscultation bilaterally. CARDIOVASCULAR: Regular rate and rhythm. No murmur. No JVD. ABDOMEN: Soft, non-tender +bs EXTREMITIES: No edema. Non-tender. SKIN: No rashes or lesions. Warm. NEUROLOGIC: No focal neurological deficits. CN II-XII grossly intact PSYCHIATRIC: Cooperative. Appropriate mood and affect [facility] Surgical History No pertinent past surgical history Family History Father No problems noted. Mother No problems noted. Social History Housing: House Patient Tobacco Use Status: Never used Tobacco e-Cigarette/Vaping Use: Never Used service: No Current occupational status: unemployed Current occupational exposures/hazards: No Cognitive needs: No Hearing needs: No Vision needs: Yes Physical Exam Vital Signs: Last Vital Signs Pulse 65 04/13/24 10:48 BP 138/76 04/13/24 10:48 BMI result Body Mass Index 40.4 Results AMB Hemoglobin A1c AMB Hemoglobin A1c 8.9 % Last Edit by HIEN Miles on 04/13/24 11:08 Results Reviewed Results Reviewed: Laboratory Last Values Glucose (Clinic) 176 mg/dL (60-115) H 04/13/24 10:55 Assessment & Plan Assessment & Plan (1) Diabetes: Code(s): E11.9 - Type 2 diabetes mellitus without complications Category: Medical Qualifiers: Diabetes mellitus type: type 2 Diabetes mellitus detention insulin use: with director long term care use Diabetes mellitus complication status: with hyperglycemia Qualified Code(s): E11.65 - Type 2 diabetes mellitus with hyperglycemia; Z79.4 - manager intermediate (current) use of insulin Plan: Hyperglycemia in setting of being out of medications/medication changes due to insurance. Now she will increase trulicity to 1.5 and has all of her other medication as prescribed. Would like to maximize trulicity. she will follow up in 3 months but may call sooner for medication adjustments. (2) Insulin long-term use: Code(s): Z79.4 - manager intermediate (current) use of insulin Category: Medical Plan: see above Orders: Orders AMB Hemoglobin A1c Today E11.9 - Type 2 diabetes mellitus without complications, Z79.4 - manager intermediate (current) use of insulin Medications: New Trulicity (dulaglutide) 1.5 mg (0.5 mL) subcut QWEEK 6 mL 3RF NS E11.65 - Type 2 diabetes mellitus with hyperglycemia, Z79.4 - assisted (current) use of insulin Changed From FreeStyle Ramy 3 Sensor (blood-glucose sensor) every 14 days 6 ea 3RF NS E11.65 - Type 2 diabetes mellitus with hyperglycemia, E11.9 - Type 2 diabetes mellitus without complications, Z79.4 - manager intermediate (current) use of insulin To FreeStyle Ramy 3 Sensor (blood-glucose sensor) every 14 days. PLEASE DISPENSE 12 week supply 6 ea 3RF NS E11.65 - Type 2 diabetes mellitus with hyperglycemia, E11.9 - Type 2 diabetes mellitus without complications, Z79.4 - assisted (current) use of insulin Refilled insulin lispro 20 units for breakfast 15 units for lunch and dinner subcutaneously 3 times a day; 90 days 45 mL 3RF Discontinued Ozempic (semaglutide) for 4 weeks Discontinued Reason: Doctor's Order 0.5 mg (0.736 mL) subcut QWEEK 9 mL 3RF NS E10.65 - Type 1 diabetes mellitus with hyperglycemia, E11.9 - Type 2 diabetes mellitus without complications, Z79.4 - manager intermediate (current) use of insulin Trulicity (dulaglutide) Discontinued Reason: Doctor's Order 0.75 mg (0.5 mL) subcut QWEEK 2 mL 3RF NS Humalog KwikPen Insulin (insulin lispro) Discontinued Reason: Insurance Denied 20 units subcutaneous with breakfast 15 units subcutaneous with lunch;15 units with dinner 45 mL 3RF NS E11.9 - Type 2 diabetes mellitus without complications, Z79.4 - manager intermediate (current) use of insulin Coding Level of Care Code Est Pt Level 4 (14626) Diagnoses Type 2 diabetes mellitus with hyperglycemia, with long-term current use of insulin E11.65; Z79.4 Diabetes mellitus type: type 2 Diabetes mellitus director long term care insulin use: with detention use Diabetes mellitus complication status: with hyperglycemia Insulin long-term use Z79.4
[2024-04-13 10:48] VITALS: BP 138/76; PULSE 65; BMI 40.4
[2024-04-13 10:59] LABS: Glucose, Whole Blood 176 mg/dL (60-115)
== END 2024-04-13 11:18 | disposition home or self-care (01) ==
PROVIDERS: PCP Internal Medicine; Visit Provider Internal Medicine
DX: E11.65 Type 2 diabetes mellitus with hyperglycemia (principal); Z79.4 Long term (current) use of insulin; E11.9 Type 2 diabetes mellitus without complications

== ENCOUNTER → 2024-04-13 10:40 | Outpatient (BNVA) | payer OTHER, SELFPAY | PROVIDERS: PCP Internal Medicine; Visit Provider Internal Medicine | DX: E11.65 Type 2 diabetes mellitus with hyperglycemia (principal); Z79.4 Long term (current) use of insulin; Z79.84 Long term (current) use of oral hypoglycemic drugs | CPT/HCPCS: 82947; 83036; 99212 ==